=== PATIENT | female | born 1965 | race Caucasian/White ===

== ENCOUNTER 2019-10-09 17:15 | Inpatient (IN) | payer MEDICAID ==
[2019-10-09] MEDS ORDERED: ABILIFY15 MG PO (18:01)
[2019-10-09] MEDS ORDERED: ARISTADA882 MG/3.2 IM (18:04)
[2019-10-09] MEDS ORDERED: DEPAKOTE ER500 MG PO (18:07)
[2019-10-09] MEDS ORDERED: LIPITOR10 MG PO (18:08)
[2019-10-09] MEDS ORDERED: SYNTHROID,LEVO75 MCG PO (18:09)
[2019-10-09] MEDS ORDERED: VITAMIN D34000 UNIT PO (18:10)
[2019-10-09] MEDS ORDERED: GEODON20 M1 IM (18:12)
[2019-10-09 20:48] VITALS: BP 131/69
--- NOTE | 2019-10-09 20:48 | NUR ---
A 54, admitted VOLUNTARY BY GUARDIAN to , under the services of BERNARD Gamble MD with a diagnosis of SCHIZOAFFECTIVE D/O BIPOLAR TYPE 1. Chief complaint is MED NON-COMPLIANCE, YELLING, CALLING POLICE. Patient arrived via stretcher from [facility]. Initial assessment completed. Vital signs taken and recorded. BERNARD GAMBLE MD notified of admission to the unit. Orders received. See assessment for past medical history, medications and allergies. Patient oriented to unit. [facility]. visitation policy reviewed. Clothing/patient valuable form completed. MORRIS DOE
--- NOTE | 2019-10-09 21:17 | NUR ---
Called and notified Dr. Mckeon regarding patient's admission to floor. Dr. Mckeon said to place patient under services of Dr. Bailey for medical management.
--- NOTE | 2019-10-09 22:20 | NUR ---
CALLED AND NOTIFIED OF EKG RESULTS BEING IN AND READY FOR REVIEW. NO NEW ORDERS RECEIVED AT THIS TIME.
--- NOTE | 2019-10-09 22:26 | NUR ---
ON UNIT, REVIEWED PATIENTS RECENT EKG AND PMH. STATED TO DO ANOTHER EKG FOR IN THE MORNING. NO OTHER ORDERS RECEIVED.
--- NOTE | 2019-10-09 22:40 | NUR ---
CALLED AND UPDATED ON NEEDING WOUND CARE ORDERS. STATED HE WILL PUT THEM IN. NO NEW ORDERS RECEIVED.
--- NOTE | 2019-10-09 23:07 | NUR ---
PT SUSPICIOUS AND ACCUSATORY UPON ADMISSION, ALERT AND ORIENTED X3, LABILE. PT STATED SHE IS ONLY HERE BECAUSE THE STAFF AT THE OTHER FACILITY DIDNT DO THEIR JOB CORRECTLY AND MESSED UP HER MEDICATIONS, ALSO THAT THEY DONT DO ANYTHING TO HELP HER THERE AND LET OTHER RESIDENTS BE VERBALLY OR PHYSICALLY AGGRESSIVE TOWARDS HER. PT THEN STATED THE QUESTIONS DURING THE ADMISSION PROCESS ARE "TRICK QUESTIONS" AND THAT SHE WILL SUBPOENA THIS RN TO TESTIFY ON EVERYTHING THAT WAS ASKED BECAUSE HER "MENTAL STABILITY IS FINE". PT ALSO REFUSED HS MEDICATIONS STATING THEY ARE WRONG BECAUSE OF THE COLOR AND WILL NOT TAKE ANYTHING UNTIL SHE TALKS WITH . PT UNRECEPTIVE TO REDIRECTION OR THERAPEUTIC INTERVENTIONS AT THIS TIME, X2 STAFF WITH CARE DUE TO PAST ACCUSATORY BEHAVIORS. PT DENIES SI/HI, HALLUCINATIONS, OR PAIN, NO NOTED RESPONDING TO INTERNAL STIMULI. PT COMPLIANT WITH SKIN ASSESSMENT WITHOUT DIFFICULTY. PT INDEPENDENT IN ADL'S, AMBULATORY WITH A STEADY GAIT, CONTINENT OF BOWEL AND BLADDER. PT CURRENTLY LAYING DOWN WITH EYES CLOSED, RESPIRATIONS EASY AND REGULAR, NO SIGNS OR SYMPTOMS OF DISTRESS NOTED. PLAN IS TO CONTINUE TO MONITOR MOOD AND BEHAVIORS. PROVIDE 1:1 WITH THERAPEUTIC INTERVENTIONS. ENCOURAGE MEDICATION COMPLIANCE AND EDUCATE. MAINTAIN Q 15 MIN CHECKS.
--- NOTE | 2019-10-10 05:36 | NUR ---
PATIENT SLEPT APPROX 7 HOURS UNINTERRUPTED.
[2019-10-10 06:27] LABS: BASO % 0.4 % (0.0-1.0); EOS # 0.1 10*3/uL (0.0-0.4); EOS % 0.7 % (1.0-4.0); HEMATOCRIT 36.6 % (37.0-47.0); HEMOGLOBIN 11.7 g/dl (12.0-16.0); LYMPH # 3.6 10*3/uL (1.3-4.4); LYMPH % 45.1 % (27.0-41.0); MEAN CELL VOLUME 94.6 fl (81.0-99.0); MEAN CORPUSCULAR HGB 30.2 pg (27.0-31.0); MEAN PLATELET VOLUME 12.2 fl (9.6-12.3); MONO # 0.7 10*3/uL (0.1-1.0); MONO % 8.9 % (3.0-9.0); NEUT # 3.6 10*3/uL (2.3-7.9); NEUT % 44.3 % (47.0-73.0); PLATELET COUNT AUTOMATED 211 10*3/uL (130-400); RED BLOOD COUNT 3.87 10*6/uL (4.10-5.10); RED CELL DISTRI WIDTH 13.6 % (0-14.5)
--- NOTE | 2019-10-10 06:28 | NUR ---
RENE TOMLIN [id number] Please refer to the physician's history and physical for past medical history, comorbid conditions, and allergies. Diagnosis: SCHIZOAFFECTIVE BIPOLAR TYPE I Giovanni Score: 22,LOW OR NO RISK WOUND DESCRIPTIONS: Wound Number: 1 Location of the wound: Left upper arm Thickness: Partial Size: 0.6cm x 0.3cm x 0.1cm Tunneling: none Undermining: none Sinus Tract: none Presence of Exudate: Serosanguineous Amount: Light Color: Red Odor: None Periwound Skin Appearance: Normal Wound edges: approximated Pain (associated with wound): none at time of assessment How does patient state this happened? pt stated to nurse caring for her that she picked a scabbed area, when this nurse asked patient she stated it was from acne then prior to this nurse leaving the room she stated it was from injections from a previous facility. Wound Number: 2 Location of the wound: Left upper posterior shoulder Thickness: Partial Size: 0.5cm x 0.4cm x 0.1cm Tunneling: none Undermining: none Sinus Tract: none Presence of Exudate: Serosanguineous Amount: Light Color: Red Odor: None Periwound Skin Appearance: Normal Wound edges: approximated Pain (associated with wound): none at time of assessment How does patient state this happened? pt stated to nurse caring for her that she picked a scabbed area, when this nurse asked patient she stated it was from acne then prior to this nurse leaving the room she stated it was from injections from a previous facility. Patient has multiple scabbed areas noted to upper back and bilateral arms Surface the patient is resting on: Proform SKIN PREVENTION RECOMMENDATION: 1. Pressure redistribution support surface as appropriate 2. Elevate heels 3. Remove boots/TEDS every shift and reapply 4. Head of bed 30 degrees as tolerated 5. Assess nutrition and hydration 6. Manage moisture 7. Avoid the use of containment devices while in bed 8. Use absorptive products on surfaces limit layers of linens on bed 9. Turn and reposition every 1-2 hours in bed and every 1 hour in chair as tolerated 10. Weight shifts every 15 minutes while up in chair 11. Offloading with pillows or device to keep heels elevated off bed 12. Monitor skin at least every shift 13. Inspect under medical devices twice a day WOUND TREATMENT RECOMMENDATIONS: Continue skin tear guidelines per provider.
[2019-10-10 06:37] LABS: ALKALINE PHOSPHATASE 92 U/L (45-117); BUN 7 mg/dl (7-24); CHLORIDE 113 mmol/L (98-107); CHOLESTEROL 99 mg/dL (<200); CREATININE 0.61 mg/dL (0.55-1.02); HDL CHOLESTEROL 29 mg/dl (40-60); LDL CHOLESTEROL 49 mg/dL (9-159); POTASSIUM 3.9 mmol/L (3.5-5.1); SGOT/AST 8 IU/L (3-35); SGPT/ALT 10 U/L (12-78); SODIUM 145 mmol/L (136-145); TOTAL PROTEIN 6.2 gm/dL (6.4-8.2); TRIGLYCERIDES 105 mg/dl (<150); VALPROIC ACID (DEPAKENE) 21.2 ug/ml (50-100); VLDL CHOLESTEROL 21 mg/dL (6-40)
--- NOTE | 2019-10-10 06:56 | NUR ---
Called Dr. Sullivan's answering service regarding consult and they said they would page Dr. Sullivan and give him the message.
--- NOTE | 2019-10-10 06:59 | NUR ---
RESIDENT NUMBER CALLED AT [phone], UPDATED OF CRITICAL AMMONIA LAB OF 65. NNO RECEIVED.
--- NOTE | 2019-10-10 07:00 | NUR ---
PT. REFUSED EKG. STATES SHE DOES NOT WANT TO HAVE EKG DONE. STAFF NOTIFIED.
[2019-10-10 07:27] LABS: VITAMIN D, 25-HYDROXY 18.8 ng/mL (30-100)
[2019-10-10 07:58] VITALS: BP 116/71
--- NOTE | 2019-10-10 08:30 | NUR ---
TREATMENT PLAN MEETING WAS HELD WITH DR. DAY, MATT LIU, RN, AT, PHYSICAL THERAPY PROFESSOR-S AND SHOP ESTIMATOR. PLAN FOR DISCHARGE WEDNESDAY. PT. CAME TO [facility] FROM [facility]. WILL REACH OUT TO FACILITY TODAY TO DISCUSS DISCHARGE PLANNING.
--- NOTE | 2019-10-10 10:25 | NUR ---
PT IS ARGUMENTATIVE. REFUSING SOME AM MEDICATIONS. ASSESSED FOR ORIENTATION, MOOD, AND AFFECT. ASSESSED FOR HALLUCINATIONS AND DELUSIONS. MEDICATIONS ADMINISTERED PER ORDERS, EDUCATION PROVIDED. PT ALERT, ORIENTED X 4. MOOD IS IRRITABLE, LABILE. AFFECT IS CONGRUENT WITH MOOD. PT DENIES HALLUCINATIONS. NO OVERT S/S OF ATTENDING INTERNAL STIMULI. PATIENT IS PERSECUTORY IN SPEECH. PT CONTINUES TO REFUSE LACTULOSE DESPITE EDUCATION. YNES, LENS POLISHER HAND AWARE, SPOKE WITH PT WELL, STATES SHE WILL SPEAK WITH DR. DAY ABOUT POTENTIALLY CHANGING MEDICATION TO REDUCE AMMONIA LEVEL. WILL CONTINUE TO MONITOR PT'S MOOD. WILL EDUCATE ON MEDICATIONS AND ADMINISTER PER ORDERS. WILL ENCOURAGE PARTICIPATION IN GROUP THERAPY FOR SOCIALIZATION AND SUPPORT. Q 15 MIN MONITORING PER POLICY FOR SAFETY.
--- NOTE | 2019-10-10 10:29 | NUR ---
Spoke with pt's guardian Janette Fontenot. Obtained additional patient information. Janette stated that she wants [facility] to contact her prior to the restoration technician meeting with pt. Notified [facility] staff of this and posted notes near phones with the above mentioned instruction.
--- NOTE | 2019-10-10 11:02 | NUR ---
DR. WHEELER IN TO SEE PT AT THIS TIME. REVIEWED RECENT EKG'S AND EKG'S FROM FACILITY, STATES THAT THE LANI AND TERRA ARE FINE TO GIVE, IF PSYCH MEDS ARE CHANGED, GET AN EKG AFTER A COUPLE DAYS AND MONITOR THEM NEEDED.
--- NOTE | 2019-10-10 11:35 | NUR ---
AM GROUP PT ATTENDED MORNING GROUP THERAPY LATE BUT PARTICIPATED IN ALL ACTIVITIES ONCE IN ATTENDANCE. PT WAS TALKATIVE WITH A MALE PEER BUT STAYED ON TASK. PT EXPRESSED NO DELUSIONS OR HALLUCINATIONS WHILE IN GROUP. PT ASSESSMENT NOT COMPLETE AT THIS TIME BUT WILL BE ATTEMPTED THIS EVENING.
--- NOTE | 2019-10-10 14:36 | NUR ---
SPOKE WITH RON AT [facility]. PT. IS GATEKEEPER CARE RESIDENT AND WILL RETURN AT DISCHARGE. SIG CHANGE RESIDENT REVIEW SUBMITTED BY FACILITY.
--- NOTE | 2019-10-10 15:18 | NUR ---
Patient was pleasant this afternoon during interaction with this specification writer. Pt reminisced about her teen years. Pt also spoke of moving to [place] recently. Pt made appropriate eye contact and conversation. Pt did not speak of any paranoid delusions. Pt's mood and reactions were appropriate to the conversation.
--- NOTE | 2019-10-10 15:35 | NUR ---
Nutritional Support Services Note: Appetite is good for meals. She has abrasions noted. Staff to continue to encourage good intake of meals and snack. Will follow if needed. Cande Lara Rdn Ld
[2019-10-10 17:35] LABS: BILIRUBIN NEGATIVE (NEGATIVE); BLOOD NEGATIVE (NEGATIVE); CLARITY CLEAR (CLEAR); COLOR STRAW (YELLOW); GLUCOSE NEGATIVE (NEGATIVE); KETONE NEGATIVE (NEGATIVE); LEUKO ESTERASE 1+ (NEGATIVE); NITRITE NEGATIVE (NEGATIVE); SPECIFIC GRAVITY 1.005 (1.005-1.030); UROBILINOGEN 0.2 E.U./dl (0.2-1.0)
[2019-10-10 17:38] LABS: BACTERIA 1+
[2019-10-10 19:47] VITALS: BP 126/79
--- NOTE | 2019-10-10 20:37 | NUR ---
EVENIING/GAME/CRAFT PT IN ATTENDNACE AND PARTICIPATED IN ALL ACTIVITY. PT PLEASANT AND ON TASK AT THIS TIME WITH NO HALLUCINATIONS, OR AGGRESSION. PT DID STATE TO THIS STAFF "WHY IS HER OXYGEN MACHINE UP CLOSE NEXT TO HER THE HOT AIR IS BLOWING ONTO HER AND ITS TOO LOUD FOR HER EARS?" THIS STAFF ATTEMPTS TO REDIRECT PT AND PT STATES "I'LL ASK A NURSE THEN". THIS STAFF ATTEMPTED PT ACTIVITY ASSESSMENT TWICE BUT PT STATES BOTH TIMES "NOT RIGHT NOW". PT WILL CONTINUE TO ATTEND/PARTICIPATE IN FUTRUE GROUP SESSIONS.
--- NOTE | 2019-10-11 01:34 | NUR ---
P-PREOCCUPIED, IRRITABLE I-REDIRECTION WITH 1:1 THERAPEUTIC INTERVENTIONS AND PRESENT REALITY. EDUCATE AND ENCOURAGE GROUP THERAPY WHILE AWAKE R-PATIENT MEDICATION COMPLIANT EXCEPT FOR TAKING NEOMYCIN. PATIENT ASKING THIS NURSE TO EXPLAIN THE RATIONALE FOR TAKING NEOMYCIN. THIS NURSE EXPLAINED TO PATIENT THE RATIONALE AND REVIEWED RECENT LAB WORK WITH PATIENT. PATIENT REFUSED NEOMYCIN STATING "I HOPE THAT DOCTOR THAT TRIED TO ORDER THIS GETS THE CORONAVIRUS AND I'M NOT TAKING IT. THIS NURSE REVIEWED THE REST OF PATIENT MEDICATIONS AT HS. PATIENT PROVIDED NOURISHMENT AND FLUIDS AT HS. PATIENT WITH NO SUICIDAL OR HOMICIDAL IDEATIONS. PATIENT WITH NO HALLUCINATIONS AT THIS TIME. P-CONTINUE TO ENCOURAGE MEDICATION COMPLIANCE, CONTINUE TO PRESENT REALITY, ENCOURAGE GROUP THERAPY WHILE AWAKE
--- NOTE | 2019-10-11 05:14 | NUR ---
Upon discharge recommend patient to follow up for wound care in outpatient setting continue current wound care orders at discharging facility.
--- NOTE | 2019-10-11 05:30 | NUR ---
PATIENT SLEPT 7 HOURS OF UNINTERRUPTED SLEEP THROUGHOUT SHIFT. Q 15 MINUTE CHECKS MAINTAINED. 24 HR chart check completed.
[2019-10-11 07:28] VITALS: BP 120/63
--- NOTE | 2019-10-11 10:03 | NUR ---
TREATMENT PLAN MEETING WAS HELD WITH DR. DAY, MATT LIU, RN, AT, DIRECT CARE PROVIDER-S AND TUBER HELPER. PLAN FOR DISCHARGE WEDNESDAY WITH RETURN TO [facility].
--- NOTE | 2019-10-11 10:10 | NUR ---
Spoke with pt's guardian Janette Fontenot and provided update. Janette will also be faxing pt's last PAS determination results to this designer writer should [facility] security controls assessor request additional information.
--- NOTE | 2019-10-11 11:12 | NUR ---
PT RECEIVED ARISTADA AND ARISTADA INITIO PER ORDERS. PT TOLERATED WELL.
--- NOTE | 2019-10-11 11:40 | NUR ---
AM GROUP PT ATTENDED MORNING GROUP THERAPY AND PARTICIPATED IN ALL ACTIVITIES. PT DID EXPRESS SOME PARANOID IDEATIONS BY STATING, "WHAT ARE THOSE AIR FRESH THINGS THAT THEY HAVE PUMPING INTO OUR ROOMS AT NIGHT? I CAN SMELL IT ALL NIGHT LONG" THEN LATER PT STATED A FEW TIMES, "THERE IT IS, CAM YOU SMELL IT?" PT ALSO SAID, "I NEED TO SEE THE DOCTOR BECAUSE HE'S GIVING ME ONE MEDICINE AND THEN THOSE NURSES CHANGE IT AND GIVE ME SOMETHING ELSE, THAT'S WHAT THEY DID AT THE OTHER PLACE TOO. I'M NOT TAKING ANYTHING BECAUSE ANYONE CAN COME ALONG AND CHANGE WHAT MEDICINES I TAKE!"
--- NOTE | 2019-10-11 13:46 | NUR ---
CLINICAL UPDATES FAXED TO [facility] ATTN: RON.
--- NOTE | 2019-10-11 14:15 | NUR ---
SPOKE WITH DR RUANO AND ADVISED OF DR TOPETE REQUEST THAT ANY MEDICATION CHANGES BE DISCUSSED WITH HIM PRIOR TO THE CHANGE BEING MADE D/T PT PARANOIA REGARDING MEDS. DR MOLINA RETURNED CALL AND ADVISED OF ABOVE DR STATED "OK" NO FURTHER ORDERS AT THIS TIME.
--- NOTE | 2019-10-11 15:43 | NUR ---
PM GROUP/CRAFTS PT ATTENDED AFTERNOON GROUP THERAPY AND PARTICIPATED IN ALL ACTIVITIES. PT CONTINUES TO BE PARANOID ABOUT MEDICATIONS AND WHEN ADVISED TO SPEAK TO HER NURSE, BECAME AGITATED. PT STATED, "I'M NOT TAKING ANYTHING UNTIL I TALK TO THE DOCTOR. NURSES ARE GOING IN AND CHANGING MY MEDICATION"
--- NOTE | 2019-10-11 16:31 | NUR ---
LORENZO CALLED IN AND ADVISED THAT SHE IS COMING TO SEE PT, ADVISED THAT SHE ALREADY SPOKE TO GUARDIAN. THIS NURSE CALLED AND VERIFIED WITH GUARDIAN. PER GUARDIAN SHE FAXED AROUND 20 SOMETHING PAGES OF INFORMATION TO JAYLA THIS MORNING TO BE GIVEN TO THE LORENZO PERSON.
[2019-10-11 19:35] VITALS: BP 126/63
--- NOTE | 2019-10-11 23:52 | NUR ---
P- PARANOID, DELUSIONAL, ACCUSATORY. PT STATED "YOU KNOW THEY PUMP PERFUME THROUGH THE VENTS HERE IN THE MIDDLE OF THE NIGHT TO MESS WITH PEOPLE LIKE ME WHO HAVE COPD". I-PRESENTED REALITY AND REDIRECTED. PROVIDED 1:1 WITH THERAPEUTIC INTERVENTIONS. PROVIDED REASSURANCE OF SAFETY. ENCOURAGED MEDICATION COMPLIANCE AND EDUCATED. R- PT UNRECEPTIVE TO REDIRECTION OR INTERVENTIONS, BECOMES AGITATED/ARGUMENTATIVE. PT ALSO CONTINUES TO BE SUSPICIOUS OF MEDICATIONS DESPITE EDUCATION, PT STATED "ILL TAKE THEM BUT I DONT THINK THESE DOCTORS KNOW WHAT THEY ARE DOING, SO IF I THROUGHOUT THE NIGHT YOU KNOW WHY". PT MEDICATION COMPLIANT. X2 STAFF DURING CARE DUE TO ACCUSATORY BEHAVIOR. NO PHYSICAL COMPLAINTS VOICED. P-CONTINUE TO MONITOR MOODS AND BEHAVIORS. PRESENT REALITY AND REDIRECT NEEDED. MAINTAIN Q 15 MIN CHECKS AND PRN FOR SAFETY.
--- NOTE | 2019-10-12 05:56 | NUR ---
24 HOUR CHART CHECK COMPLETED.
--- NOTE | 2019-10-12 06:07 | NUR ---
PATIENT SLEPT APPROX 2 HOURS INTERRUPTED, NO SIGNS OR SYMPTOMS OF DISTRESS NOTED.
[2019-10-12 08:00] VITALS: BP 116/76
--- NOTE | 2019-10-12 09:00 | NUR ---
TREATMENT PLAN MEETING WAS HELD WITH DR. DAY, RN, AT, ORCHESTRA LEADER-S AND IT COMPLIANCE MANAGER. PLAN FOR DISCHARGE WEDNESDAY WITH RETURN TO [facility].
--- NOTE | 2019-10-12 11:37 | NUR ---
AM GROUP PT ATTENDED MORNING GROUP THERAPY AND PARTICIPATED IN ALL ACTIVITIES. PT IS STILL FOCUSED ON MEDICATION AND HAVING TO TAKE A SHOT. PT WAS REFERED TO HER NURSE FOR QUESTIONS ABOUT MEDS. OTHERWISE, PT WAS TALKATIVE BUT ON TASK
--- NOTE | 2019-10-12 14:40 | NUR ---
P: PT PARANOID REGARDING MEDICATIONS AND THEIR USES. PT IRRITABLE AT TIMES WITH STAFF AND PEERS. PT GRANDIOSE AT TIMES TELLING STAFF "MY ROOMMATE IS TAKING MY THINGS AND THORWING THEM ON THE FLOOR, COME LOOK." PT MOOD IS LABILE. I: PROVIDE EMOTIONAL SUPPORT AND 1:1 FOR PT TO VOICE FEELINGS, ENCOURAGE MED COMPLIANCE AND PROVIDE MED EDUCATION, ENCOURAGE GROUP PARTICIPATION AND SOCIALIZATION, PRESENT REALITY AND RE-ORIENT WITH EACH INTERACTION AND NEEDED R: PT ALERT TO PERSON, PLACE AND TIME. PT CONTINUES TO BE PARANOID RE:MEDICATIONS. PT MED COMPLIANT WITHOUT DIFFICULTY, MED EDUCATION PROVIDED. PT CALM, MOOD REMAINS LABILE. NO HALLUCINATIONS NOTED. PT DENIES ANY SUICIDAL THOUGHTS. PT AMBULATORY THROUGHOUT UNIT, GAIT STEADY. PT CONTINENT OF BOWEL AND BLADDER. PT CONTINENT OF BOWEL AND BLADDER. P: MONITOR PT BEHAVIORS ON Q15 MIN SAFETY CHECKS, ENCOURAGE MED COMPLIANCE AND PROVIDE MED EDUCATION, ENCOURAGE GROUP PARTICIPATION AND SOCIALIZATION, PRESENT REALITY AND RE-ORIENT AND NEEDED, PROVIDE EMOTIONAL SUPPORT AND 1:1 FOR PT TO VOICE FEELINGS.
--- NOTE | 2019-10-12 15:40 | NUR ---
PM GROUP PT ATTENDED AND PARTICIPATED IN ALL GROUP ACTIVITIES. PT EXPRESSED MANY PARANOID IDEATIONS DURING GROUP, SUCH , "HER SISTER DID THIS TO HER ILLEGALLY BECAUSE SHE WAS JEALOUS OF HER...HER GUARDIAN DOES'T HAVE THE RIGHT COURT PAPERS TO MAKE HER DO ANYTHING...THE STAFF AT [facility] ALL HATE HER...ETC."
[2019-10-12 20:00] VITALS: BP 121/82
--- NOTE | 2019-10-12 20:42 | NUR ---
24 HR chart check completed.
--- NOTE | 2019-10-12 23:17 | NUR ---
P-PARANOID, GRANDIOSE DELUSIONS, IRRITABLE, IMPULSIVE I-1:1 FOR EMOTIONAL SUPPORT, PRESENT REALITY, MONITOR SLEEP R-PT IS IRRITABLE & UNRECEPTIVE TO PRESENTATION OF REALITY. CONTINUES TO VOICE GRANDIOSE & PARANOID DELUSIONS. PT CAME TO NURSES STATION IMMEDIATELY AFTER CHANGE OF SHIFT. ASK TO USE THE PHONE. INFORMED HER OF GUARDIANS GUIDELINES. PT VERY IRRITABLE & SHE WALKED AWAY FROM NURSES STATION & INTO DINING ROOM, SHE YELLED, "THERE IS A COURT HEARING TOMORROW. YOU ARE ALL GONNA BE RESPONSIBLE & IN TROUBLE. MY SON & MY DAUGHTER OVERRULE MY GUARDIAN. I DONT CARE WHAT THE GUARDIAN SAYS. I NEED TO TALK TO MY SON." ATE SNACK. HAS BEEN OFFERED PRN ROZEREM SEVERAL TIMES & HAS REFUSED TO TAKE IT FOR ASSISTANCE WITH SLEEP. P-CONTINUE TO MONITOR & PROVIDE PHYSICAL ASSISTANCE & EMOTIONAL SUPPORT NEEDED.
--- NOTE | 2019-10-13 06:53 | NUR ---
PT SLEPT PAST 229.
[2019-10-13 08:00] VITALS: BP 131/75
--- NOTE | 2019-10-13 11:20 | NUR ---
Spoke with Eilsa of [facility] who stated that they received the Resident Review determination for pt and that she was not approved for LTC. Elisa stated that the [employer] [facility] social work professor was informing pt's guardian of this. This scientific writer requested a copy of the determination be faxed to [facility].
--- NOTE | 2019-10-13 11:21 | NUR ---
CLINICAL UPDATES FAXED TO [facility].
--- NOTE | 2019-10-13 11:38 | NUR ---
AM GROUP/WATERCOLORS PT ATTENDED MORNING GROUP THERAPY AND PARTICIPATED IN ALL ACITIVITIES. PT WAS LESS TALKATIVE THIS MORNING AND WAS MORE TASK FOCUSED. PT EXPRESSED NO PARANOID DELUSIONS WHILE IN GROUP.
--- NOTE | 2019-10-13 18:19 | NUR ---
PT CONTINUES WITH IRRITABILITY REGARDING INABILITY TO MAKE PHONE CALLS PER GUARDIAN. STATES "I WISH THAT F*CKING B*TCMarycruz WOULD MIND HER OWN BUSINESS AND LET ME CALL MY FAMILY. FAMILY TRUMPS MY GUARDIAN AND I SHOULD BE ALLOWED TO DO WHAT I WANT". PT ENCOURAGED TO CALM DOWN, ENTER LOW STIMULATION AREA SUCH HER ROOM, PROVIDED WITH REDIRECTION AND EMOTIONAL SUPPORT. REDIRECTION AND LOW STIMULATION INTERMITTENTLY EFFECTIVE. PT HAD SEVERAL EPISODES OF YELLING ABOUT LACK OF PHONE CALLS. PT ALWAYS REDIRECTED AGAIN BY STAFF. WILL CONTINUE TO REDIRECT AND PROVIDE EMOTIONAL SUPPORT APPROPRIATE. Q15 MIN MONITORING PER POLICY.
--- NOTE | 2019-10-13 18:55 | NUR ---
Shift chart check completed.
[2019-10-13 19:50] VITALS: BP 133/78
--- NOTE | 2019-10-13 19:59 | NUR ---
24 HR chart check completed.
--- NOTE | 2019-10-13 20:34 | NUR ---
PT HAS BEEN CHECKED ON Q 15 MIN ROUNDS. HAS BEEN SLEEPING SINCE THE ONSET OF THE SHIFT. NO SIGNS/SYMPTOMS OF DISTRESS NOTED.
--- NOTE | 2019-10-14 05:25 | NUR ---
PT HAS SLEPT SINCE THE ONSET OF THE SHIFT. UP X 1 TO GO TO THE BATHROOM.
[2019-10-14 08:00] VITALS: BP 115/76
--- NOTE | 2019-10-14 08:48 | NUR ---
DR MOLINA ON UNIT TO ASSESS PT, UPDATE PROVIDED.
--- NOTE | 2019-10-14 11:30 | NUR ---
PT COMPLAINED OF A HEADACHE, MEDICATED WITH TYLENOL 650 MG PO PRN PER ORDERS.
--- NOTE | 2019-10-14 11:47 | NUR ---
AM GROUP/COLOR THERAPY/CRAFT PT IN ATTENDNACE AND PARTICIPATED IN ALL ACTIVITY'S. PT PLEASANT WITH NO HALLUCINATIONS OR PARANOID DELUSIONS EXPRESSED AT THIS TIME. PT WILL CONTINUE TO ATTEND AND PARTICIPATE IN FUTURE GROUP SESSIONS.
--- NOTE | 2019-10-14 12:00 | NUR ---
NO FURTHER C/O HEADCHE NOTED AT THIS TIME, PT IN DINING ROOM EATING LUNCH.
--- NOTE | 2019-10-14 15:38 | NUR ---
PM GROUP/LEISURE SKILLS PT IN ATTENDNACE AND PARTICIPATED. PT WORKING ON PAINTING A BIRDHOUSE. PT PLEASANT WITH NO PARANOID DELUSIONS OR HALLUCINATIONS EXPRESSED AT THIS TIME. PT WILL CONTINUE TO ATTEND/PARTICIPATE IN FUTRUE GROUP SESSIONS.
--- NOTE | 2019-10-14 16:18 | NUR ---
P: PT ARGUEMENTATIVE WITH STAFF RE: HER INABILITY TO MAKE PHONE CALLS PER HER GUARDIAN'S ORDERS. PT STATED "SHE HAS NO SAY OVER MY FAMILY, SHE CAN'T CONTROL WHAT I DO, SHES A BCH SHE CAN'T TELL ME AND MY FAMILY WHAT TO DO." PT REFUSING SHOWER THIS SHIFT, WILL TELL STAFF "OK IM READY TO GET MY SHOWER" AND THEN WHEN STAFF STATES "OK I'LL SET IT UP FOR YOU" PT STATES "OH NO I DON'T WANT ONE RIGHT NOW" I: PROVIDE EMOTIONAL SUPPORT AND 1:1 FOR PT TO VOICE FEELINGS, PROVIDE EDUCATION RE: GUARDIAN PROCESS AND THE GUARDIANS ABILITY TO MAKE DECISIONS FOR THE PT, PROVIDE REDIRECTION. ENCOURAGE GOOD HYGIENE PRACTICES. R: PT ALERT TO PERSON, PLACE AND TIME. PT MED COMPLIANT WITHOUT DIFFICULTY,MED EDUCATION PROVIDED. PT CONTINUES TO BE ARGUEMENTATIVE WITH STAFF AND CURSING. NO HALLUCINATIONS NOTED. PT DENIES ANY SUICIDAL THOUGHTS. PT AMBULATORY THROUGHOUT UNIT, GAIT STEADY. PT CONTINENT OF BOWEL AND BLADDER. PT CONTINUES TO REFUSE TO SHOWER AT THIS TIME. P: MONITOR PT BEHAVIORS ON Q15 MIN SAFETY CHECKS, ENCOURAGE MED COMPLIANCE AND PROVIDE MED EDUCATION, PROVIDE EMOTIONAL SUPPORT AND 1:l FOR PT TO VOICE FEELINGS, CONTINUE TO PROVIDE EDUCATION ON GUARDIANSHIP PROCESS. PROVIDE REDIRECTION NEEDED, ENCOURAGE GOOD HYGIENE PRACTICES.
--- NOTE | 2019-10-14 16:49 | NUR ---
PT REMOVED BANDAIDS FROM LEFT UPPER ARM AND LEFT SHOULDER AREA.
[2019-10-14 20:00] VITALS: BP 112/72
--- NOTE | 2019-10-14 21:31 | NUR ---
P-PREOCCUPIED, IRRITABLE I-REDIRECTION WITH 1:1 THERAPEUTIC INTERVENTIONS AND PRESENT REALITY. EDUCATE AND ENCOURAGE GROUP THERAPY WHILE AWAKE R-PATIENT WITH MEDICATIONS GIVEN AT HS. PATIENT WITH NO HALLUCINATIONS OR DELUSIONS AT THE TIME. PATIENT WITH NO SUICIDAL OR HOMICIDAL IDEATIONS. PATIENT REFUSED NOURISHMENT AT HS BUT RECEIVED FLUIDS. PATIENT IRRITABLE AT TIMES AND PREOCCUPIED WHEN WANTING TO DISCUSS MEDICATIONS AT HS. PATIENT REDIRECTABLE WITHOUT DIFFICULY. P-CONTINUE TO ENCOURAGE MEDICATION COMPLIANCE, CONTINUE TO PRESENT REALITY, ENCOURAGE GROUP THERAPY WHILE AWAKE
--- NOTE | 2019-10-14 23:23 | NUR ---
PATIENT REQUESTED UMER AT . THIS NURSE WENT OVER THE USAGE FOR MEDICATION. PATIENT INSPECTED PILL PRIOR TO ADMINSTATION OF MEDICATION. MEDICATION WITH EFFECTIVE RESULTS AT THIS TIME
--- NOTE | 2019-10-15 05:27 | NUR ---
PATIENT SLEPT 7 HOURS OF UNINTERRUPTED SLEEP THROUGHOUT SHIFT. Q 15 MINUTE CHECKS MAINTAINED. 24 HR chart check completed.
--- NOTE | 2019-10-15 07:32 | NUR ---
Patient resting quietly with no c/o discomfort. Respirations easy and regular. Vital signs stable. No overt distress. HARLEEN TRUONG Pt refused breakfast at this time, stated not hungry at this time.
[2019-10-15 07:34] VITALS: BP 131/75
--- NOTE | 2019-10-15 08:00 | NUR ---
Eric CHAIN BUILDER LOOM CONTROL on unit to see pt at this time, update given.
--- NOTE | 2019-10-15 09:00 | NUR ---
on unit to see pt at this time.
--- NOTE | 2019-10-15 10:23 | NUR ---
NO ADVERSE BEHAVIORS OF THIS TIME IN THE SHIFT. PT IS ALERT AND ORIENTED X4. MEMORY APPEARS TO BE INTACT. RESPS EASY AND EVEN ON ROOM AIR. MOOD STABLE, AFFECT APPROPRIATE. PT DENIES FEELING SAD, DEPRESSED OR ANXIOUS. DENIES FEELING HOPELESS, STATES "I FEEL REALLY REALLY GOOD". WHEN ASKED IF PT FELT BETTER NOW THAN SHE DID UPON ADMISSION TO THE UNIT PT STATES "I DON'T REALLY KNOW IF I FEEL BETTER, BUT I GOT TO TALK TO THE DOCTOR ABOUT MY PSYCH MEDS AND THAT WAS GOOD, THAT WAS THE MOST IMPORTANT THING". PT DENIES SI/HI, INTENT OR PLAN. PT DENIES HALLUCINATIONS, NO RESPONSE TO INTERNAL STIMULI NOTED. NO PARANOIA OR DELUSIONS NOTED. MED COMPLIANT THIS AM WITHOUT DIFFICULTY. PT INTERACTING APPROPRIATELY WITH STAFF AND PEERS THIS AM. NO DISTRESS NOTED. PLAN TO CONTINUE CURRENT TX, CONTINUE TO MONITOR MOOD AND BEHAVIORS, PROVIDE APPROPRIATE REORIENTATION, REDIRECTION AND 1:1 NEEDED. CONTINUE TO ENOURAGE MEDICATION COMPLIANCE WELL GROUP ATTENDANCE AND PARTICIPATION.
--- NOTE | 2019-10-15 11:44 | NUR ---
AM GROUP/EXERCISE/DISCUSSION/CRAFT PT IN ATTENDNACE AND PARTICIPATED IN ALL ACTIVITY. PT PLEASANT AND ON TASK WITH NO HALLUCINATIONS OR PARANOID DELSUIONS EXPRESSED AT THIS TIME. PT WILL CONTINUE TO ATTEND AN DPARTICIPATE IN FUTURE GROUP SESSIONS.
--- NOTE | 2019-10-15 13:39 | NUR ---
PT REFUSED SKIN TREATMENTS TO AREAS TO UPPER LEFT ARM/LEFT SHOULDER. AREAS APPEAR SCABBED OVER AT THIS TIME. PT STATES "NO, THEY TOLD ME IT WAS OKAY". PT REMAINS BEHAVIORALLY IN CONTROL OF THIS TIME IN THE SHIFT, DRINKING GINGERALE, WATCHING TV AND SOCIALIZING WITH FEMALE PEER APPROPRIATELY AT THIS TIME.
--- NOTE | 2019-10-15 18:28 | NUR ---
PT REFUSED SHOWER THIS SHIFT DESPITE OFFERING MULTIPLE TIMES AND ENCOURAGEMENT.
--- NOTE | 2019-10-15 18:29 | NUR ---
SHIFT CHART CHECK COMPLETED.
[2019-10-15 20:00] VITALS: BP 140/86
--- NOTE | 2019-10-15 21:43 | NUR ---
PATIENT ALERT AND ORIENTED. PATIENT WITH NO RESPIRATORY DISTRESS. PATIENT MOOD IS STABLE. PATIENT WITH NO HALLUCINATIONS OR DELUSIONS AT THE TIME. PATIENT WITH NO SUICIDAL OR HOMICIDAL IDEATIONS. PATIENT REFUSED NOURISHMENT AT BUT RECEIVED FLUIDS. PATIENT INTERACTING WITH NURSING STAFF AND PATIENTS APPROPRIATELY. PATIENT SHOWERED AND PATIENT CHIN SHAVED WITH MENTAL HEALTH WORKER PRESENT. PATIENT STATED "I'M PRETTY TIRED TONIGHT, BUT IF I CAN NOT GET ANY SLEEP BY 11 TONIGHT THEN I WILL COME AND ASK YOU FOR THAT MEDICATION YOU GAVE ME LAST NIGHT FOR SLEEP. PATIENT AMBBULATING ON UNIT WITH STEADY GAIT AND WITH NO ASSISTIVE DEVICE. SEE [facility] FLOW SHEET FOR SPECIFIC MONITORING.
--- NOTE | 2019-10-15 23:30 | NUR ---
PATIENT REQUESTED ROZERM AT . PATIENT WITH COMPLAINT OF NOT BEING ABLE TO SLEEP AT THIS TIME. PATIENT INSPECTED ROZERM TO MAKE SURE WHAT THE PILL SHE WAS TAKING. PATIENT PREOCCUPIED WITH MEDICATION AND WANTING TO REVIEW THE USE FOR ROZERM. PATIENT ALSO STATED "THIS IS THE SECOND DAY I HAVE TAKING THIS. I WILL NOT TAKE IT TOMORROW. I DO NOT WANT TO DEPEND ON ANY MEDICATION TO HELP ME SLEEP". MEDICATION WITH EFFECTIVE RESULTS.
--- NOTE | 2019-10-16 05:25 | NUR ---
PATIENT SLEPT 4 HOURS INTERRUPTED SLEEP THROUGHOUT SHIFT. Q 15 MINUTE CHECKS MAINTAINED. 24 HR chart check completed.
[2019-10-16 07:44] VITALS: BP 122/77
--- NOTE | 2019-10-16 09:21 | NUR ---
Spoke with pt's guardian Janette Fontenot about the RR determination. Janette was not aware that pt was denied continued stay in . Discussed this further. Janette stated that she will appeal the determination. Informed her that planned discharge for pt is most likely mid-week with discharge plan of pt returning to [facility] while waiting for appeal process.
--- NOTE | 2019-10-16 10:16 | NUR ---
TREATMENT PLAN MEETING WAS HELD WITH DR. DAY, MATT LIU, RN, AT, PHYSIOLOGIST-S AND ACCOUNTANT CONTROLLER. PLAN FOR DISCHARGE THIS WEEK. PT. WILL RETURN TO [facility] AT DISCHARGE.
--- NOTE | 2019-10-16 10:24 | NUR ---
Patient pleasant during interaction with this global technical writer this AM. Pt did speak of her son and his occupation but did not ask to call him on the phone. Pt did not voice any hallucinations or delusions.
--- NOTE | 2019-10-16 11:44 | NUR ---
AM GROUP PT ATTENDED MORNING GROUP THERAPY AND PARTICIPATED LIMITEDLY. PT WAS FOCUSED ON BEING DISCHARGED TODAY STATING THAT DR. DAY AND THE SW TOLD HER THAT WE WERE JUST WAITING ON A RIDE. PT WOULD NOT BE REDIRECTED. PT EXPRESSED NO PARANOID DELUSIONS OR HALLUCINATIONS WHILE IN GROUP.
--- NOTE | 2019-10-16 14:25 | NUR ---
NO ADVERSE MOODS OR BEHAVIORS NOTED. PT ALERT TO PERSON, PLACE AND TIME. PT MED COMLPIANT WITHOUT DIFFICULTY, MED EDUCATION PROVIDED. PT CALM, MOOD IS STABLE. PT GOAL DIRECTED TOWARDS DISCHARGE. NO HALLUCINATIONS OR DELUSIONS NOTED. PT DENIES ANY SUICIDAL THOUGHTS OR BEHAVIORS. PT AMBULATORY THROUGHOUT UNIT, GAIT STEADY. PT CONTINENT OF BOWEL AND BLADDER. PLAN IS TO MONITOR PT BEHAVIORS ON Q15 MIN SAFETY CHECKS, ENCOURAGE MED COMPLIANCE AND PROVIDE MED EDUCATION, PROVIDE EMOTIONAL SUPPORT AND 1:1 FOR PT TO VOICE FEELINGS, ENCOURAGE GROUP PARTICIPATION AND SOCIALIZATION.
--- NOTE | 2019-10-16 15:35 | NUR ---
PM GROUP PT ATTENDED AFTERNOON GROUP THERAPY AND PARTICIPATED IN ALL ACTIVITIES. PT WAS TALKATIVE AND SEEMED TO "ZONE OUT" AND STARE INTO SPACE AND WOULD MAKE COMMENTS THAT WERE OFF THE WALL. PT EXPRESSED NO PARANOID DELUSIONS DURING GROUP.
[2019-10-16 19:41] VITALS: BP 151/87
--- NOTE | 2019-10-16 20:25 | NUR ---
EVENING/LEISURE SKILLS PT IN ATTENDNACE AND PARTICIPATING BY SOCIALIZING AND WATCHING MUSIC VIDEOS. PT EXPRESSES NO PARANOID DELUSIONS OR HALLUCINATIONS AT THIS TIME. PT WILL CONTINUE TO ATTEND AND PARTICIPATE IN FUTURE GROUP SESSIONS.
--- NOTE | 2019-10-16 21:03 | NUR ---
P-PREOCCUPIED I-REDIRECTION WITH 1:1 THERAPEUTIC INTERVENTIONS AND PRESENT REALITY. EDUCATE AND ENCOURAGE GROUP THERAPY WHILE AWAKE R-PATIENT PREOCCUPIED WITH PRN MEDICATION. PATIENT DISCUSSED WITH THIS NURSE THAT SHE "DID NOT WANT TO TAKE ROZEREM AT HS". PATIENT EXPLAINED THAT SHE WANTED TO TRY GOING WITH OUT IT AT HS AND DOES NOT WANT TO TAKE PRN MEDICATION EVERY NIGHT AND START TO DEPEND ON IT FOR SLEEP. PATIENT WITH NO HALLUCINATIONS OR DELUSIONS AT THE TIME. PATIENT WITH NO SUICIDAL OR HOMICIDAL IDEATIONS. PATIENT PROVIDED FLUIDS AT HS. PATIENT WITH STABLE MOOD AND INTERACTING WITH PEERS IN DINING AREA. P-CONTINUE TO ENCOURAGE MEDICATION COMPLIANCE, CONTINUE TO PRESENT REALITY, ENCOURAGE GROUP THERAPY WHILE AWAKE
--- NOTE | 2019-10-17 05:49 | NUR ---
PATIENT SLEPT 7 HOURS OF UNINTERRUPTED SLEEP THROUGHOUT SHIFT. Q 15 MINUTE CHECKS MAINTAINED. 24 HR chart check completed.
[2019-10-17 07:15] VITALS: BP 137/91
--- NOTE | 2019-10-17 07:47 | NUR ---
SPOKE WITH EUGENIA PRINGLE NP RE: PT DISCHARGE FOR TODAY AND MEDICAL MEDS NEEDING COMPLETED. NO FURTHER ORDERS AT THIS TIME.
[2019-10-17] MEDS ORDERED: ANIMAL SHAPES1 EAC2 PO (08:31)
[2019-10-17] MEDS ORDERED: ARISTADA662 MG/2.4 IM (08:31)
[2019-10-17] MEDS ORDERED: ROZEREM8 MG PO (08:31)
--- NOTE | 2019-10-17 10:19 | NUR ---
NO ADVERSE MOODS OR BEHAVIORS NOTED AT THIS TIME. PT ALERT TO PERSON, PLACE, AND TIME. PT MED COMPLIANT WITHOUT DIFFICULTY, MED EDUCATION PROVIDED. PT CALM, MOOD IS STABLE. PT ABLE TO CONVERSATE APPROPRIATELY WITH STAFF AND PEERS. NO HALLUCINATIONS OR DELUSIONS NOTED AT THIS TIME. PT DENIES ANY SUICIDAL THOUGHTS OR BEHAVIORS. PT HAS SCABS NOTED TO LEFT UPPER ARM AND LEFT UPPER SHOULDER. PT AMBULATORY THROUGHOUT UNIT, GAIT STEADY. PT CONTINENT OF BOWEL AND BLADDER. PLAN IS TO MONITOR PT BEHAVIORS ON Q15 MIN SAFETY CHECKS AND PREPARE PT FOR DISCHARGE TO [facility].
--- NOTE | 2019-10-17 11:31 | NUR ---
WOUND PHOTOS TAKEN AT THIS TIME.
--- NOTE | 2019-10-17 11:35 | NUR ---
AM GROUP PT ATTENDED MORNING GROUP THERAPY AND PARTICIPATED IN ALL ACTIVITIES. PT WAS NOTED TO LAUGH INAPPROPRIATELY BUT EXPRESSED NO PARANOID DELUSIONS WHILE IN GROUP. PT IS SET TO BE DISCHARGED FROM THE UNIT TODAY.
--- NOTE | 2019-10-17 12:50 | NUR ---
PT DISCHARGED TO [facility] ER [facility]IA [facility]. PT SYEDA AND DC PAPERWORK SENT WITH PT.
--- NOTE | 2019-10-17 12:52 | NUR ---
NURSE TO NURSE REPORT GIVEN TO MEL AT [facility], ADVISED THAT PT IS ENROUTE.
--- NOTE | 2019-10-17 15:27 | NUR ---
Patient discharged today to [facility]. Follow-up will be with Dr Santos, visiting psychiatrist. While at [facility], pt's behaviors improved and her paranoid delusions lessened. Pt became med compliant. Pt did participate in programming. This telegraphic typewriter installer spoke to pt's guardian at length about the planned appeal of pt's Resident Review determination.
== END 2019-10-17 12:50 | DRG 750 ==
LOC: 3N 17:15
PROVIDERS: ADMIT Psychiatry & Neurology Psychiatry
DX: F25.0 Schizoaffective disorder, bipolar type (principal); E55.9 Vitamin D deficiency, unspecified; F17.210 Nicotine dependence, cigarettes, uncomplicated; Z71.6 Tobacco abuse counseling; E87.8 Other disorders of electrolyte and fluid balance, not elsewhere classified; E44.0 Moderate protein-calorie malnutrition; E72.20 Disorder of urea cycle metabolism, unspecified; E66.9 Obesity, unspecified; R73.03 Prediabetes; E78.5 Hyperlipidemia, unspecified; E03.9 Hypothyroidism, unspecified; Z88.8 Allergy status to other drugs, medicaments and biological substances; Z83.6 Family history of other diseases of the respiratory system

== ENCOUNTER 2019-11-06 23:16 | Inpatient (IN) | payer MEDICAID ==
[~2019-11-06] VITALS: Ht 167.6 cm; Wt 74.8 kg
[~2019-11-06 23:16] MED LIST: ABILIFY15 MG PO; ANIMAL SHAPES1 EAC2 PO; ARISTADA662 MG/2.4 IM; ARISTADA882 MG/3.2 IM; DEPAKOTE ER500 MG PO; GEODON20 M1 IM; LIPITOR10 MG PO; ROZEREM8 MG PO; SYNTHROID,LEVO75 MCG PO; VITAMIN D34000 UNIT PO
[2019-11-07] MEDS ORDERED: BISACODYL5 MG PO (05:35)
[2019-11-07] MEDS ORDERED: LACTULOSE20 GM/30 M PO (05:41)
[2019-11-07] MEDS ORDERED: GEODON20 M1 IM (05:45)
[2019-11-07] MEDS ORDERED: ARISTADA882 MG/3.2 IM ×2 (09:29→09:32)
--- NOTE | 2019-11-07 10:35 | NUR ---
RENE TOMLIN a 54 year old F admitted via stretcher from the [facility] as a voluntary BY GUARDIAN admission. Arrived on unit at 1035. ALLERGIES: RISPIREDONE. Vital signs are: [id number] 113/75. The client's legal guardian verbally agreed to over the phone to the following forms with stated understanding: Authorization For The Release of Medical Information, Clothing List, Consent to Voluntary Admission and Hospitalization, Consent and Release Forms/Receipt of Rights, Acknowledgement of Advance Directive Information, Behavioral Health Consent Form, and Informed Consent of Medications. Admitted under the services of Dr. SHAY MONTENEGRO,[facility]. A search was conducted and hazardous articles were removed. Client was oriented to the unit. MICHA MARTÍNEZ
--- NOTE | 2019-11-07 10:53 | NUR ---
Please refer to psychosocial assessment dated 10/10/19. This AS400 DEVELOPER-S spoke with pt's legal guardian Janette Fontenot who confirmed that she is wanting pt to return to [facility]. Janette also requests that pt not receive/place phone calls. Further, Janette does not want an [facility] rose grader to speak to pt before the rose grader speaks to Janette.
--- NOTE | 2019-11-07 11:44 | NUR ---
DR. LYNCH NOTIFIED OF NEW ADMISSION. MEDICATIONS AND DIAGNOSIS LIST UPDATED FOR REVIEW. NOTIFIED OF BILATERAL SHOULDER WOUNDS FOR TREATMENTS. PATIENT WILL BE UNDER THE CARE OF DR. BEARDEN. PATIENT RESTING IN BED WITH NOT DISTRESS. BED ALARM TURNED ON.
[2019-11-07 11:50] VITALS: BP 113/75
--- NOTE | 2019-11-07 12:15 | NUR ---
EUGENIA PRINGLE CNP ON UNIT TO ASSESS PATIENT.
[2019-11-07 12:42] VITALS: BP 113/75
[2019-11-07 14:44] LABS: BILIRUBIN NEGATIVE (NEGATIVE); BLOOD NEGATIVE (NEGATIVE); CLARITY CLEAR (CLEAR); COLOR YELLOW (YELLOW); GLUCOSE NEGATIVE (NEGATIVE); KETONE NEGATIVE (NEGATIVE); LEUKO ESTERASE NEGATIVE (NEGATIVE); NITRITE NEGATIVE (NEGATIVE); PH 6.5 (5.0-9.0); SPECIFIC GRAVITY 1.005 (1.005-1.030); UROBILINOGEN 0.2 E.U./dl (0.2-1.0)
--- NOTE | 2019-11-07 15:57 | NUR ---
Shift chart check completed.
--- NOTE | 2019-11-07 17:09 | NUR ---
P: VOICED PENTECOSTAL DEULSIONAL THOUGHTS VOICED. STATING "I WAS TRYING TO BREAK THE SCREEN WINDOW TO LEAVE AND GO HOME. CK WAS TELLING ME TO GET AWAY FROM THE VIRUS, I GOT AWAY ONCE AND CALLED MY DAUHER AND THE POLICE BROUGHT ME BACK TO [facility]" I: ONE ON ONE, REDIRECTION AND LIMIT SETTING NEEDED R: EFFECTIVE. PATIENT IS ALERT AND ORIENTED TO PERSON, PLACE, TIME AND SITUATION; ABLE TO VOICE NEEDS. MOOD IS IRRITABLE WITH PRESSURED SPEECH AT TIMES, DEMANDING AND LABILE. DENIES ANY HALLUCINATINS, DELUSIONS, HI/SI OR PAIN. Q 15 MINUTE SAFETY CHECKS MAINTANED. 1 PERSON ASSIST CUEING WITH ACTIVITIES OF DAILY LIVING, CONTINENT OF BOWEL AND BLADDER. SET UP FOR MEALS, INTAKES ARE GOOD. SHOWERED THIS AFTERNOON. AMBULATORY WITH STEADY GAIT. P: CONTINUE TO MONITOR MOOD, AGGRESSION, HALLUCINATIONS AND DELUSIONS. PROVIDE ONE ON ONE AND REDIRECTION NEEDED.
--- NOTE | 2019-11-07 17:38 | NUR ---
PATIENT REFUSING SCHEDULED LIPITOR AT THIS TIME. 1:1 INTERACTION AND EDUCATION PROVIDED ON MEDICATION NEED FOR INDIVIDUAL CASE. PATIENT STATED "I AM REFUSING THAT LIPITOR. GO AHEAD LOOK IN MY CHART, THERE IS NOTHING WRONG WITH MY CHOLESTEROL. I HAVE THE RIGHT TO REFUSE MEDICATIONS". 1:1 AND EDUCATION THAT WAS PROVIDED WAS INEFFECTIVE. CONTINUES TO REFUSE.
--- NOTE | 2019-11-07 17:41 | NUR ---
PATIENT TOOK WOUND DRESSINGS OFF SHOULDER PRIOR TO SHOWER AND REFUSED TO HAVE DRESSING PUT BACK ON. PATIENT STATED "I KNOW I PICK AT THEM AND I DON'T WANT DRESSING ON THEM PERIOD.
[2019-11-07 20:00] VITALS: BP 105/54
--- NOTE | 2019-11-07 22:51 | NUR ---
Patient alert and oriented to person,place,time and situation. Mood is irritable and demanding. Patient can be intrusive at times. No SI/HI noted. Denies any hallucinations at this time. No memory deficits noted. Patient asked "could I have a couple more blankets, I'm cold". This nurse brought her a few blankets,patient said "thank you,what is your name." This nurse told patient this nurse's name and patient said "thank you again,Tia and I will get a hold of Tye Pena for you". Patient had no HS medications due so this nurse could not determine if patient is compliant. Provided 1:1 for emotional support. Redirected when needed. Plan to continue to encourage medication compliance. Also continue to offer emotional support and redirect when needed/appropriate. Will continue to monitor moods/behaviors. Q 15 minute safety checks continued and maintained. See [facility] flowsheet for further documentation.
--- NOTE | 2019-11-08 00:27 | NUR ---
24 HR chart check completed.
--- NOTE | 2019-11-08 03:33 | NUR ---
Spoke with Tia nurse caring for patient and informed her that wound care orders were still needed at this time.
--- NOTE | 2019-11-08 04:54 | NUR ---
Patient slept approx. 8 hours throughout shift with a few awakenings. Q 15 minute safety checks continued and maintained.
[2019-11-08 06:11] LABS: BASO % 0.4 % (0.0-1.0); EOS # 0.1 10*3/uL (0.0-0.4); EOS % 1.6 % (1.0-4.0); HEMATOCRIT 37.7 % (37.0-47.0); LYMPH % 39.4 % (27.0-41.0); MEAN CELL VOLUME 94.5 fl (81.0-99.0); MEAN CORPUSCULAR HGB 30.6 pg (27.0-31.0); MEAN CORPUSCULAR HGB CONC 32.4 g/dl (33.0-37.0); MEAN PLATELET VOLUME 11.9 fl (9.6-12.3); MONO # 0.4 10*3/uL (0.1-1.0); MONO % 5.3 % (3.0-9.0); NEUT # 4.1 10*3/uL (2.3-7.9); PLATELET COUNT AUTOMATED 257 10*3/uL (130-400); RED BLOOD COUNT 3.99 10*6/uL (4.10-5.10); RED CELL DISTRI WIDTH 14.1 % (0-14.5); WHITE BLOOD COUNT 7.7 10*3/uL (4.8-10.8)
[2019-11-08 06:46] LABS: ALBUMIN 3.1 gm/dl (3.1-4.5); ALKALINE PHOSPHATASE 111 U/L (45-117); BUN 9 mg/dl (7-24); CHLORIDE 109 mmol/L (98-107); CHOLESTEROL 184 mg/dL (<200); CREATININE 0.66 mg/dL (0.55-1.02); HDL CHOLESTEROL 43 mg/dl (40-60); LDL CHOLESTEROL 118 mg/dL (9-159); POTASSIUM 3.6 mmol/L (3.5-5.1); SGOT/AST 17 IU/L (3-35); SGPT/ALT 18 U/L (12-78); SODIUM 141 mmol/L (136-145); TOTAL PROTEIN 6.2 gm/dL (6.4-8.2); TRIGLYCERIDES 116 mg/dl (<150); VLDL CHOLESTEROL 23 mg/dL (6-40)
[2019-11-08 07:56] VITALS: BP 119/72
--- NOTE | 2019-11-08 08:00 | NUR ---
Patient eating in dining room with no c/o discomfort. Respirations easy and regular. Vital signs stable. No overt distress. SHARMILA GONZALES
[2019-11-08 08:04] LABS: VITAMIN D, 25-HYDROXY 23.6 ng/mL (30-100)
--- NOTE | 2019-11-08 08:10 | NUR ---
EUGENIA PRINGLE CNP ON UNIT TO ASSESS PATIENT.
--- NOTE | 2019-11-08 08:30 | NUR ---
Treatment Plan meeting was held with Dr. Santos, MATT Galdamez, RN, PICTURE FRAMER-S and Recycling Manager. Plan for discharge Next week. Pt. will return to [facility].
--- NOTE | 2019-11-08 09:03 | NUR ---
SPEECH PATHOLOGY Nursing screen completed. Patient does not require speech pathology services a this time. This dept. will remain available should future needs arise. ANDREW MONIQUE MSCCC-BRAND MARKETING MANAGER
--- NOTE | 2019-11-08 09:16 | NUR ---
Patient eating in dining room with no c/o discomfort. Respirations easy and regular. Vital signs stable. No overt distress. SHARMILA GONZALES
--- NOTE | 2019-11-08 09:21 | NUR ---
Pt stating that she had shoes, a jacket and $7 when she left facility. Facility confirmed that pt did have jacket and shoes and was given $9 the morning she was transferred to [facility]. Call placed to nurse "Anaya" at [facility], states that she found a note that read pt was in hallway throwing shoes. States she would look for these belongings and call [facility] with findings.
--- NOTE | 2019-11-08 09:57 | NUR ---
EUGENIA PRINGLE CNP MADE AWARE OF PT REFUSING AM MEDICATIONS. Rahul PRINGLE CNP IS AWARE OF PT'S TSH LEVEL.
--- NOTE | 2019-11-08 10:27 | NUR ---
Patient is demanding and argumentative this AM - raising her voice to multiple staff. An example of this: Pt was angry that her drinks were removed from the activity room when pt went to her room. Pt demanded replacements. Pt also stated that she was not mentally ill, did not have to take medications, and that anyone that would not allow pt to talk to her family and guardian would be in trouble. Staff discussed and agreed on setting limits with pt in order to control pt's behaviors.
--- NOTE | 2019-11-08 14:59 | NUR ---
Spoke with pt's legal guardian Janette Corie and provided pt update to her. Janette stated that she approves of forced medicating of pt if this becomes necessary. Janette also informed this web content writer that the [facility] lead software qa engineer Katherine had left Janette a message and the plan is for Janette to speak to Katherine tomorrow AM. Janette then requested to speak to pt. Took pt the phone. Observed pt as she spoke on the phone. At first pt was pleasant but then her voice began to escalate, she voiced accusatory statements to Janette, swore at her, and then hung up the phone on her.
--- NOTE | 2019-11-08 15:21 | NUR ---
PT HAS BEEN ARGUMENTATIVE AND DEMANDING THIS SHIFT, OCCASIONALLY VULGAR WITH STAFF IF SHE DOES NOT QUICKLY GET HER WAY. PT REDIRECTED. LIMIT SETTING PROVIDED. EDUCATED ON TREATMENT PLAN. PT SOMEWHAT RECEPTIVE TO REDIRECTION. LIMIT SETTING EFFECTIVE PATIENT WILL CALM AFTER BOUNDARIES REINFORCED. PT EDUCATED ON TREATMENT PLAN. STATES THAT SHE WILL TAKE HER ARISTADA ON THE 10TH, BUT CONTINUES TO REFUSE PO VITAMINS AND MEDICATIONS. WILL CONTINUE TO MONITOR PT'S BEHAVIORS AND MOOD. WILL CONTINUE TO REDIRECT AND PROVIDE LIMIT SETTING APPROPRIATE. Q 15 MIN MONITORING PER POLICY FOR SAFETY.
--- NOTE | 2019-11-08 15:45 | NUR ---
Shift chart check completed.
--- NOTE | 2019-11-08 23:49 | NUR ---
24 HR chart check completed.
--- NOTE | 2019-11-09 00:28 | NUR ---
PT SAT IN THE DINING ROOM FOR A WHILE. SHE HAS BEEN PLEASANT WITH STAFF & COMPLIANT WITH UNIT RULES WITH NO SARCASM VOICED. ALERT & ORIENTED X 4. HAS MADE NO DEMANDS & HAS BEEN WELL MANNERED WITH STAFF WITH VERBAL INTERACTION. DRANK FLUIDS FOR SNACK. NO DELUSIONAL STATEMENTS VOICED. DOES CONTINUE TO REFUSE WOUND CARE TO SHOULDERS & BACK. REQUESTED TO TAKE A SHOWER & WAS INDEPENDENT. NO PHYSICAL COMPLAINTS VOICED.
--- NOTE | 2019-11-09 04:22 | NUR ---
Recommend follow up for wound care in outpatient setting patient refused at this time.
--- NOTE | 2019-11-09 05:13 | NUR ---
PT HAS SLEPT QUIETLY PAST 2100 WITH A BRIEF AWAKENING TO GO TO THE BATHROOM. SHE WAS HEARD LAUGHING IN HER ROOM BRIEFLY. APPROX 8.5 HOURS
--- NOTE | 2019-11-09 07:11 | NUR ---
IP na per [place] Medicaid online portal. Auth # [id number]
[2019-11-09 07:34] VITALS: BP 115/58
--- NOTE | 2019-11-09 07:45 | NUR ---
Patient eating breakfast in dining room with peers. Respirations easy and regular. Vital signs stable. No overt distress. HARLEEN TRUONG and team on unit to see pt this AM. Aware pt refusing meds. updated via telephone.
--- NOTE | 2019-11-09 08:25 | NUR ---
Treatment Plan meeting was held with Dr. Santos, RN, SALES AGENT MARINE INSURANCE-S and Unemployment Claims Adjudicator. Plan for discharge Wednesday. Pt. will return to [facility].
--- NOTE | 2019-11-09 10:24 | NUR ---
Spoke with Katherine, the [facility] drywall stripper, and provided her with pt information. Spoke with pt's guardian Janette Fontenot and provided her with pt update. Pt has been pleasant with this functional tester typewriters this AM. Pt began to get upset when her drinks were removed from the activity room. However, she quickly calmed when she was told that she could have another cup of coffee. This functional tester typewriters overheard pt voicing delusional statements to the [facility] drywall stripper about medications and [facility], but pt did not voice any delusions directly to this functional tester typewriters.
--- NOTE | 2019-11-09 11:29 | NUR ---
Clinical Updates faxed to [facility] Attn: Bernadette [phone]. Spoke with Bernadette who advised that she is off today. Call placed to [facility] and Left voice Message for Nadiya Royalp Strong Nitric Operator to inquire about Apeal Hearing.
--- NOTE | 2019-11-09 17:36 | NUR ---
Pt refused Lipitor. Attempted to offer education re: importance for medication, pt refused to state why she didn't want to take this medication.
[2019-11-09 20:00] VITALS: BP 136/76
--- NOTE | 2019-11-09 21:34 | NUR ---
24 HR chart check completed.
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
--- NOTE | 2019-11-10 06:03 | NUR ---
PATIENT SLEPT OVER 7 HOURS LAST NIGHT.
--- NOTE | 2019-11-10 06:07 | NUR ---
This nurse and nurse caring for patient Cande RN went to assess skin at this time. This nurse stated may I take a look at your skin and patient stated No. Unable to redirect at this time for visualizations of skin impairments.
--- NOTE | 2019-11-10 06:08 | NUR ---
PATIENT CONTINUES TO REFUSE TO HAVE WOUNDS TO BACK EVALUATED.
[2019-11-10 07:30] VITALS: BP 132/74
--- NOTE | 2019-11-10 07:36 | NUR ---
Patient eating breakfast in dining room at this time. Respirations easy and regular. Vital signs stable. No overt distress. HARLEEN TRUONG
--- NOTE | 2019-11-10 08:15 | NUR ---
Treatment Plan meeting was held with Denice GUTIERREZ, RN, PLASTER MODEL AND MOLD MAKER-S and Front End Technician. Plan for discharge Wednesday/Wednesday. Received Call from [facility] and they have declined referral, they are unable to meet patient needs.
--- NOTE | 2019-11-10 08:15 | NUR ---
Treatment Plan meeting was held with MATT Galdamez, RN, TREATER-S and Certified Shorthand Reporter. Plan for discharge Wednesday. Pt. will return to [facility]. Spoke with Denice concerning [facility] Request for Cov-19 test with negative results prior to return to facility.
--- NOTE | 2019-11-10 09:00 | NUR ---
PT RECIEVED ARISTADA 882MG IM THIS DATE, PT TOLERATED WELL.
--- NOTE | 2019-11-10 11:23 | NUR ---
Pt pleasant this AM with this teletypewriter installer and her peers. Pt did not voice any delusional content while interacting with this teletypewriter installer.
--- NOTE | 2019-11-10 17:26 | NUR ---
PT CONTINUES TO REFUSE LIPITOR AT THIS TIME SAYS THERE IS NO PURPOSE OF CONTINUEING IT.
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
--- NOTE | 2019-11-10 19:43 | NUR ---
24 HR chart check completed.
[2019-11-10 19:52] VITALS: BP 118/87
--- NOTE | 2019-11-10 21:50 | NUR ---
P-C/O ANXIETY I-PROVIDE 1:1 FOR VERBAL INTERVENTION & EMOTIONAL SUPPORT. MONITOR SLEEP & EFFECTIVENESS OF PRN ATIVAN R-PT SAT QUIETLY IN THE DINING ROOM THIS EVENING. SHE HAS BEEN CALM & KEPT TO HERSELF. PLEASANT WITH STAFF & COMPLIANT WITH UNIT RULES. ALERT TO PERSON, PLACE & APPROX TIME. HAS MADE NO DEMANDS & HAS BEEN WELL MANNERED WITH STAFF. STATED "I FEEL REAL GOOD. I HAD MY SHOT TODAY & MAY GET TO GO HOME ON WEDNESDAY". NO DELUSIONAL STATEMENTS VOICED. ATE SNACK. DOES CONTINUE TO REFUSE WOUND CARE TO SHOULDERS & BACK. DID C/O HAVING ANXIETY & REQUESTED & MEDICATED WITH ATIVAN 1 MG PO @ 2052. STATED SHE WAS "ANXIOUS ABOUT MY DAUGHTER". P-CONTINUE TO MONITOR
--- NOTE | 2019-11-11 04:14 | NUR ---
ATIVAN HAS BEEN EFFECTIVET. PT HAS SLEPT PAST 2129
[2019-11-11 07:43] VITALS: BP 116/86
--- NOTE | 2019-11-11 08:24 | NUR ---
DR BEARDEN ON UNIT TO ASSESS PT. UPDATE PROVIDED.
--- NOTE | 2019-11-11 16:28 | NUR ---
P: PT ARGUEMENTATIVE THIS MORNING WITH STAFF RE: NOT BEING ABLE TO MAKE PHONE CALLS. PT REFUSED HER MULTIVITAMIN THIS AM AND TOOK 1 OF 2 VITAMIN D. PT MOOD IS IRRITABLE AT TIMES WITH STAFF, MORE PLEASANT THE DAY PROGRESSED. I: PROVIDE EMOTIONAL SUPPORT AND 1:1 FOR PT TO VOICE FEELINGS, PROVIDE REDIRECTION AND DIVERSIONAL ACTIVITIES, ENCOURAGE MED COMPLIANCE. R: PT ALERT TO PERSON, PLACE AND TIME. PT CONTINUED TO REFUSE HER MULTIVITAMIN AND 1 OF HER VITAMIN D STATING "I DON'T NEED 2. NO HALLUCINATIONS OR DELUSIONS NOTED. PT DENIES ANY SUICIDAL THOUGHTS, VERBALLY CONTRACTS FOR SAFETY. PT AMBULATORY THROUGHTOUT UNIT, GAIT STEADY. PT CONTINENT OF BOWEL AND BLADDER. P: MONITOR PT BEHAVIORS ON Q15 MIN SAFETY CHECKS, ENCOURAGE MED COMPLIANCE AND PROVIDE MED EDUCATION, CONTINUE TO PROVIDE EMOTIONAL SUPPORT AND 1:1 FOR PT TO VOICE FEELINGS, PROVIDE DIVERSIONAL ACTIVITES AND REDIRECTION NEEDED.
[2019-11-11 20:00] VITALS: BP 115/79
--- NOTE | 2019-11-11 21:41 | NUR ---
Patient alert and oriented to person,place,time and situation. Mood is calm but isolative to self in diningroom during snacks. Patient can be intrusive at times. No SI/HI noted. Denies any hallucinations at this time. No memory deficits noted. Patient compliant with HS medications without any difficulty. Provided 1:1 for emotional support. Redirected when needed. Plan to continue to encourage medication compliance. Also continue to offer emotional support and redirect when needed/appropriate. Will continue to monitor moods/behaviors. Q 15 minute safety checks continued and maintained. See [facility] flowsheet for further documentation.
--- NOTE | 2019-11-12 00:20 | NUR ---
24 HR chart check completed.
--- NOTE | 2019-11-12 05:25 | NUR ---
Patient slept approx. 7 hours of sleep throughout shift. Patient has refused skin assessment to be done this shift. Q 15 minute safety checks continued and maintained.
--- NOTE | 2019-11-12 07:40 | NUR ---
and team on unit to see pt at this time, update given. Nancy [facility]- saw pt this am, update given.
[2019-11-12 08:00] VITALS: BP 126/78
--- NOTE | 2019-11-12 08:10 | NUR ---
Patient resting quietly. Respirations easy and regular. Vital signs stable. No overt distress. SHARMILA GONZALES
--- NOTE | 2019-11-12 11:00 | NUR ---
Pt refused shower and skin assessment at this time despite encouragement and education.
--- NOTE | 2019-11-12 16:36 | NUR ---
P- Arguementative this AM with staff re: making phone calls to guardian about visiting family for Easter and hospital discharge. Selective with medications. Noted to be mumbling to self under breath at times. Interacts well with peers. Refused shower and skin assessment. I- Orientation, mood and behaviors assessed. Assessed pt for SI/HI, intent or plan. Assessed pt for SI/HI, intent or plan. Assessed pt for s/s hallucinations, paranoia and/or delusions. Medications administered as per physicians orders. R- Pt is alert and oriented x3. Memory appears to be intact. Resps easy and even on room air. Mood slightly irritable this AM, pt arguementative with staff regarding calling guardian about visiting family for Easter and demanding for staff to assure her that she will be discharged tomorrow. Attempts to redirect pt unsuccessful. Pt spoke with [facility] regarding these issues. Call was placed to guardian by DIRECTOR OF STRATEGIC SOURCING regardig pt request. DIRECTOR OF STRATEGIC SOURCING assured pt that discharge would be discussed further tomorrow. Pt less arguementative and mood improved as day progressed. Pt interacts well with peers. Pt denies SI/HI, intent or plan. Pt denies hallucinations, no response to internal stimuli noted. No paranoia or delusions noted. Pt continues to be selective with medications, pt took AM Synthroid and 1 of 2 tablets of Vitamin D. Pt refused AM dose of multivitamin. Pt initially refused 1800 dose of Lipitor then agreed to take it. As 2nd RN went to obtain Lipitor for pt, pt heard mumbling under her breath "Just you wait until I get my medical marijuana!" No aggressive behaviors displayed. No elopement attempts. P- Plan to continue current treatment, continue to monitor mood and behaviors, provide appropriate reorientation, redirection and 1:1 as needed. Continue to encourage medication compliance as well as group attendance and participation.
[2019-11-12 20:00] VITALS: BP 127/75
--- NOTE | 2019-11-12 21:28 | NUR ---
Patient alert and oriented to person,place,time and situation. Mood is calm but isolative to self in diningroom during snacks. Patient can be intrusive at times. No SI/HI noted. Denies any hallucinations at this time. No memory deficits noted. Patient did not have any HS medications due at this time so unable to assess medication compliance. Provided 1:1 for emotional support. Redirected when needed. Plan to continue to encourage medication compliance. Also continue to offer emotional support and redirect when needed/appropriate. Will continue to monitor moods/behaviors. Q 15 minute safety checks continued and maintained. Patient refused skin assessment to be done at this time. See [facility] flowsheet for further documentation.
--- NOTE | 2019-11-12 21:45 | NUR ---
Medicated with Klonopin po given as per order and at request of patient. Patient said "Could I have something to calm my nerves." Will monitor moods/behaviors.
--- NOTE | 2019-11-13 02:12 | NUR ---
24 HR chart check completed.
--- NOTE | 2019-11-13 05:20 | NUR ---
Patient slept approx. 6 hours throughout shift. Q 15 minute safety checks continued and maintained.
--- NOTE | 2019-11-13 05:43 | NUR ---
This nurse and nurse caring for patient Tia RN went to assess skin at this time. This nurse stated may I take a look at your skin and patient stated No and started using profanity. Unable to redirect at this time for visualizations of skin impairments.
[2019-11-13 07:31] VITALS: BP 119/91
--- NOTE | 2019-11-13 08:38 | NUR ---
Patient in dining area with peers. Respirations easy and regular. Vital signs stable. No overt distress. SHARMILA GONZALES
--- NOTE | 2019-11-13 10:50 | NUR ---
SPOKE WITH DR OVIEDO AT [phone] RE: PT DISCHARGE FOR TODAY. PER DR BEARDEN THEY WILL COMPLETE THE RAPID COVOID TEST. NO FURTHER ORDER AT THIS TIME.
--- NOTE | 2019-11-13 10:54 | NUR ---
MIHAI MALDONADO RN ON UNIT TO PERFORM RAPID COVOID TEST.
--- NOTE | 2019-11-13 10:59 | NUR ---
Left Message for Diandra Leblanc Utility Operator at [facility] concerning discharge plans and Follow up precautions.
--- NOTE | 2019-11-13 11:14 | NUR ---
COVID TEST COMPLETE AT THIS TIME, PT RESULTS NEGATIVE.
--- NOTE | 2019-11-13 11:19 | NUR ---
Left Message for Jamal network engineer administrator at [facility] to discuss discharge Planning.
[2019-11-13] MEDS ORDERED: ARISTADA882 MG/3.2 IM (11:32)
[2019-11-13] MEDS ORDERED: CLONAZEPAM1 MG PO (11:32)
--- NOTE | 2019-11-13 11:35 | NUR ---
Spoke with Nadiya Leblanc Combination Saw Operator at [facility] concerning Plans to discharge Patient today. Clinical Updates and Covid Testing Sent to [facility] Via Fax. Combination Saw Operator States that Corporate must approve return prior to discharge.
--- NOTE | 2019-11-13 11:40 | NUR ---
Pt was irritable this AM. Pt voicing negative comments about nursing and LOG TRUCK DRIVER. Pt requested to speak to her guardian. Assisted in making call to Janette Fontenot, pt's guardian. Pt was verbally abusive to her guardian during the call and hung up on her. Spoke with guardian after call was placed for pt and provided update to guardian.
--- NOTE | 2019-11-13 12:48 | NUR ---
Spoke with Jamal the service administrator at [facility]. Jamal states that patiet is "Unable to return to facility due to no isolation rooms" Pt. would require Isolation at return to facility and they are unable to accomodate with patient need to self isolate upon return due to no appropriate rooms. Nursing Staff Notified.
--- NOTE | 2019-11-13 12:48 | NUR ---
DR BEARDEN ON UNIT TO ASSESS PT, UPDATE PROVIDED.
--- NOTE | 2019-11-13 14:29 | NUR ---
Spoke with pt's guardian Janette Fontenot and informed her of conversation between Jamal Israel, [facility] storage administrator, and Fely Guajardo, technical planner. Janette stated that she contacted the [facility]. This screen writer then phoned eron Arevalo and provided further details to her. Per Leelee, [facility] must accept pt back. Leelee stated that she has left a message for Jamal and for the healthcare social worker Diandra at [facility]. Leelee stated that she will contact this screen writer once she has spoken to Jamal or Diandra. Leelee further stated to plan for pt discharge for tomorrow.
--- NOTE | 2019-11-13 14:45 | NUR ---
P: PT ANGRY/IRRITABLE WITH STAFF DUE DISCHARGE BEING PLACED ON HOLD. PT MOOD IS LABILE. PT INTRUSIVE/DISRUPTIVE TO HENRIK RAISING HER VOICE AND YELLING AT STAFF. PT DEMANDING TO SPEAK WITH HER GUARDIAN AND FOR STAFF TO CALL THE MAYOR. PT SELECTIVE WITH AM MEDS, REFUSED MULTIVITAMIN AND TOOK 1 OF 2 VITAMIN D PILLS. I: PROVIDE EMOTIONAL SUPPORT AND 1:1 FOR PT TO VOICE FEELINGS, PROVIDE LOW STIMULATION ENVIRONMENT FOR PT TO CALM. CALLED PT GUARDIAN AND LEFT A MESSAGE FOR HER TO RETURN THE CALL TO SPEAK WITH THE PT. ADVISED PT THAT WE ARE UNABLE TO CALL THE MAYOR TO REMEDY HER DISCHARGE SITUATION THAT STAFF IS WORKING WITH THE AND [facility] IN ORDER TO PERPARE FOR DISCHARGE. ENCOURAGE MED COMPLIANCE AND PROVIDE MED EDUCATION R: PT ALERT TO PERSON, PLACE, TIME AND SITUATION. PT MOOD REMAINS LABILE. PT CONTINUES TO DEMAND TO SPEAK WITH HER GUARDIAN, ADVISED THAT MESSAGES HAVE BEEN LEFT FOR THE GUARDIAN TO RETURN THE CALL. PT ASKING TO SPEAK WITH NUSING MOLD CLEANER. NO HALLUCINATIONS OR DELUSIONS NOTED. PT DENIES ANY SUICIDAL THOUGHTS. PT AMBULATORY THROUGHOUT UNIT, GAIT STEADY. PT CONTINENT OF BOWEL AND BLADDER. PT CONTINUES TO BE SELECTIVE WITH MEDICATIONS, REFUSING MULTIVITAMIN AND TAKING ONLY 1 OF 2 VITAMIN D. P: ADVISED NURSING MOLD CLEANER THAT PT WISHED TO SPEAK WITH HER. NURSING SUPERVIORS REITERATED TO THE PT THAT WE ARE DOING EVERYTHING WE CAN TO PREPARE PT FOR DISCHARGE. CONTINUE TO PROVIDE EMOTIONAL SUPPORT AND 1:1 FOR PT TO VOICE FEELINGS, PROVIDE LOW STIMULATION ENVIRONMENT FOR PT TO CALM, ENCOURAGE MED COMPLIANCE, ADVISE PT THAT WE WILL LET HER KNOW WHEN HER GUARDIAN RETURN THE CALL.
--- NOTE | 2019-11-13 15:39 | NUR ---
PM GROUP PT ATTENDED AFTERNOON GROUP THERAPY AND PARTICIPATED BY PAINTING HER FINGERNAILS AND LISTENING TO MUSIC. PT EXPRESSED NO DELUSIONAL IDEATIONS WHILE IN GROUP BUT WAS AGITATED AT NOT BEING ABLE TO LEAVE THE UNIT TODAY.
--- NOTE | 2019-11-13 15:47 | NUR ---
PT DEMANDING TO CALL HER GUARDIAN, THIS NURSE ADVISED PT THAT WE HAVE LEFT MESSAGES FOR HER GUARDIAN TO RETURN HER CALL. PT IS CURSING AND YELLING OUT THIS NURSE CALLING HER A BIH. NURSE PROVIDE EMOTIONAL SUPPORT AND 1:1 FOR PT TO VOICE FEELINGS, CONTINUES TO YELL OUT, CALLING NAMES AND CURSING AT STAFF. STAFF ASKED PT TO LEAVE THE DINING ROOM IF SHE IS GOING TO CONTINUE TO YELL OUT AND CURSE. PT CONTINUES WITH BEHAVIORS. SECURITY CALLED AND PT GIVEN GEDON INJECTION PRN PER ORDERS. AFTER SHOT WAS GIVEN PT YELLED OUT, "WELL NOW IM HIGH."WILL CONTINUE TO MONITOR PT BEHAVIORS.
--- NOTE | 2019-11-13 15:59 | NUR ---
DR DAY UPDATED ON PRN GEODON GIVEN. NO FURTHER ORDERS GIVEN AT THIS TIME.
--- NOTE | 2019-11-13 16:16 | NUR ---
PT GUARDIAN CALLED IN AND ADVISED THAT THE INFORMATION FROM JANELLE SMUMERS THAT WE HAD IS INCORRECT AND THE REASON SHE CANNOT RETURN IS NOT BECAUSE OF THE PT NEEDING QUARATINED BUT IS BECAUSE THEY HAVE A POSITIVE CASE AT THE FACILITY OF TWO HOURS AGO. GLEN ADVISED THAT THEY ARE LOOKING IN ALTERNATIVE PLACEMENT.
--- NOTE | 2019-11-13 17:13 | NUR ---
MICKEYDON EFFECTIVE, PT NOTICEABLY CALMER AT THIS TIME. WILL CONTINUE TO MONITOR.
[2019-11-13 19:10] VITALS: BP 111/69
--- NOTE | 2019-11-13 21:49 | NUR ---
PT HAS SLEPT UNTIL 2114. UP INDEPENDENTLY & WENT & ATE HS SNACK. STATED, "DID YOU HEAR WHAT HAPPENED WITH ME TODAY". INFORMED PT YES I DID. SHE PROCEEDED TO INFORM ABOUT THE DAYS EVENTS. SHE REMAINED AWAKE FOR ABOUT 1/2 AN HOUR & STATED SHE WAS TIRED & RETURNED TO HER ROOM.
--- NOTE | 2019-11-14 01:25 | NUR ---
24 HR chart check completed.
--- NOTE | 2019-11-14 05:41 | NUR ---
PT HAS SLEPT APPX 9 HOURS THIS SHIFT WITH A FEW BRIEF AWAKENINGS TO GET A DRINK OF WATER.
[2019-11-14 07:42] VITALS: BP 113/81
--- NOTE | 2019-11-14 07:47 | NUR ---
Patient resting quietly with no c/o discomfort. Respirations easy and regular. Vital signs stable. No overt distress. HELEN MAZA
--- NOTE | 2019-11-14 08:44 | NUR ---
SPOKE WITH DR GORDON, AND ADVISED THAT PT IS SCHEDULED FOR DC TODAY. NO FURTHER ORDERS AT THIS TIME.
--- NOTE | 2019-11-14 09:10 | NUR ---
DR BEARDEN ON UNIT TO ASSESS PT, UPDATE PROVIDED. DR AWARE OF PT PENDING DC TODAY.
--- NOTE | 2019-11-14 10:28 | NUR ---
Left voicemail messages this AM with Diandra Patricio, bilingual social worker at [facility], and Jamal Israel, training administrator at [facility] requesting return calls to discuss pt returning to [facility] today. Spoke to pt's guardian Janette Fontenot who stated that she was told that the reason pt would not be accepted back to [facility] is because that now has a positive [place] [id number] resident. Await return calls.
--- NOTE | 2019-11-14 11:04 | NUR ---
Notified Nadiya Leblanc Pattern Marking Supervisor at [facility] that per Conversation with Gabriela and Pt. Guardian. Pt. will return to [facility] today. Advised that transportation has been arranged with [facility] to Transport with chicken picker time 1:00 p.m. Discharge Paperwork Faxed to [facility] Attn: Nadiya [phone].
--- NOTE | 2019-11-14 11:10 | NUR ---
Spoke with pt's guardian Janette Corie who stated that she just had a conversation with Leelee, the [facility]. Janette stated that Leelee had spoken to the linux server administrator of [facility] yesterday with instructions that pt must return to [facility]. Per Janette, Leelee was calling Jamal Israel, [facility] linux server administrator, immediately to reiterate that pt is returning today. Prior to Janette calling this television writer, Janette had left a message with Diandra, [facility] professor of social work, informing her of the conversation with Leelee. Informed Fely Guajardo, store planner of this and asked that she call Diandra with the time that is scheduled for pt transport.
--- NOTE | 2019-11-14 11:13 | NUR ---
PT ALERT TO PERSON, PLACE, TIME AND SITUATION. PT MED REMAINS SELECTIVE WITH MEDICATIONS, REFUSING MULTIVITAMIN AND TAKING 1 OF 2 VITAMIN D, MED EDUCATION PROVIDED, PT REMAINS SELECTIVE, DR DAY AND NOE DRIVER MANAGER AWARE. PT MOOD REMAINS IRRITABLE AT TIMES PER BASELINE. NO HALLUCINATIONS OR DELUSIONS NOTED. PT DENIES ANY SUICIDAL THOUGHTS. PT AMBULATORY THROUGHOUT UNIT, GAIT STEADY. PT CONTINENT OF BOWEL AND BLADDER. PLAN IS TO PREPARE PT FOR DISCHARGE AND MONITOR PT BEHAVIORS ON Q15 MIN SAFETY CHECKS.
--- NOTE | 2019-11-14 11:48 | NUR ---
AM GROUP PT ATTENDED MORNING GROUP THERAPY AND PARTICIPATED BY PAINTING WITH WATERCOLORS. PT WAS TALKATIVE BUT ON TASK. PT IS PREOCCUPIED WITH DISCHARGE. PT EXHIBITED NO ADVERSE BEHAVIORS WHILE IN GROUP.
--- NOTE | 2019-11-14 11:56 | NUR ---
Received Voice Message from Jamal Israel Anesthesia Director at [facility] in which she states that "They will not be taking patient back and that if Patient does Arrive at the Building The Will not accept her Back, We do not have an isolation room and Are Following CMS guidelines and cannot take her back" Notified YOSI Turner. Cancelled Transportation.
--- NOTE | 2019-11-14 12:22 | NUR ---
Referral faxed to [facility] Attn: Katherine .
--- NOTE | 2019-11-14 12:25 | NUR ---
SPOKE WITH DR GORDON AND ADVISED THAT PT WILL NOT BE DISCHARGED TODAY OF RIGHT NOW. NO FURTHER ORDERS AT THIS TIME.
--- NOTE | 2019-11-14 13:24 | NUR ---
Referral to [facility] Attn: Cindy [phone].
--- NOTE | 2019-11-14 13:36 | NUR ---
Left Message for Admissions at [facility].
--- NOTE | 2019-11-14 13:44 | NUR ---
Notified negra Mckoy, that the crm administrator of [facility] left a message with Fely Guajardo, case planner, that pt will not be accepted back to [facility] and that if pt would be transported there, pt would be turned away at the door. Notified pt's guardian of the same. Spoke with Leelee again who stated that she is working with her burning supervisor and with the [facility] to attempt to resolve this. Received a call from negra Mckoy, stating that [facility] continues to refuse the return of the patient even with intervention at the state level. Confirmed with Leelee that essentially at this time, pt is homeless. Phoned pt's guardian who stated that she doesn't have a preference in location of NF for pt. Informed guardian that referrals have been made to [facility] and [facility], as each has a behavioral unit. Left a voicemail message with Diandra, rn social work at [facility], requesting names of NFs where referrals have been sent for pt.
--- NOTE | 2019-11-14 14:32 | NUR ---
Left Message for Ree Nicole manager java /Marketing at of [facility] concerning Referral. Spoke with Katherine at [facility] and Faisal has declined but has sent referral on to central intake for review and Milly Roland is reviewing now.
--- NOTE | 2019-11-14 14:43 | NUR ---
Received a call from 's guardian Janettekevin Fontenot. She stated that she made a submitted a formal complaint with [place] [facility] against [facility]. Janette further stated that she received a call back from [facility] and the caller is"just as baffled as us with Ines Espinoza's actions." Per Janette, the [facility] premium service representative was going to speak to her furnace room supervisor for further direction.
--- NOTE | 2019-11-14 14:48 | NUR ---
Spoke to Diandra, social media analyst at [facility], who provided list of referrals for pt to other s. s that have no beds in behavioral unit: [facility], [facility], [facility], [facility], [facility], and [facility]. Pending referrals are: [facility] (contact Rayna), [facility] (contact Ely), [facility] (contact Savi), [facility] (contact Sowmya). While on the phone with this procedure writer, Diandra received a call from Savi of [facility] stating that pt is most likely not appropriate for [facility] but may be for [facility]. Savi is forwarding pt info to [place].
--- NOTE | 2019-11-14 14:49 | NUR ---
Referral to [facility]. Left Message for Bruce in Admissions.
--- NOTE | 2019-11-14 15:03 | NUR ---
Spoke with Sowmya at [facility] who [facility] [employer]celain [employer]isher had sent referral to concerning Referral. Sowmya Requested further updates and Clinicals along with Nurses Noted. Faxed information to [facility] Attn: Sowmya [phone].
--- NOTE | 2019-11-14 15:34 | NUR ---
PM GROUP PT ATTENDED GROUP AND PARTICIPATED IN ALL ACTIVITIES. PT WAS VERY TALKATIVE AND EXPRESSED SEVERAL DELUSIONAL IDEATIONS PER HER BASELINE, ie, "THE NURSES ARE GOING IN A CHANGING THE DOCTORS ORDERS", "I AM NOT MENTALLY ILL SO IT'S ILLEGAL FOR THEM TO FORCE A GUARDIAN ON ME", "MY PAYEE AND GUARDIAN ARE TAKING ALL OF MY MONEY AND THE PSYCH DOCTORS ARE RIPPING OFF THE INSURANCE COMPANIES." I ALLOWED PT TO VENT AND ATTEMPTED REDIRECTION BY ASKING OPEN ENDED QUESTIONS, BUT PT WOULD [place] BACK AROUND. PT EXHIBITED NO AGGRESSIVE BEHAVIORS WHILE IN GROUP.
--- NOTE | 2019-11-14 15:43 | NUR ---
Shift chart check completed.
[2019-11-14 19:01] VITALS: BP 111/66
--- NOTE | 2019-11-14 19:45 | NUR ---
24 HR chart check completed.
--- NOTE | 2019-11-14 22:36 | NUR ---
PT HAS BEEN PLEASANT THIS EVENING. ALERT & ORIENTED X4. SHE SAT IN THE DINING ROOM & ATE SNACK. PLEASANT INTERACTIONS WITH STAFF. SHE ASKED RN, "DID YOU HEAR WHAT HAPPENED TODAY & WHY I WASNT DISCHARGED?" INFORMED HER THAT I HAD. SHE PROCEEDED TO TALK & VOICE HER FRUSTRATIONS ABOUT JANELLE SUMMERS & FEELS THEY ARE NOTHING BUT LIARS. SUPPORT PROVIDED. NO SIGNS/SYMPTOMS OF SENSORY DISTURBANCE NOTED.
--- NOTE | 2019-11-15 03:30 | NUR ---
Upon discharge recommend patient to follow up for wound care in outpatient setting continue current wound care orders at discharging facility.
--- NOTE | 2019-11-15 05:23 | NUR ---
PT HAS SLEPT INTERMITTENTLY THROUGHOUT THE SHIFT FOR APPX 5 1/2 - 6 HOURS.
--- NOTE | 2019-11-15 07:50 | NUR ---
DR. BEARDEN ON UNIT TO ASSESS PATIENT.
[2019-11-15 08:00] VITALS: BP 136/89
--- NOTE | 2019-11-15 08:15 | NUR ---
Treatment Plan meeting was held with Dr. Santos, MATT Galdamez, RN, AT, A OPERATOR-S and Director Workers Compensation. Plan for discharge unclear. Facility in which patient resided LTC has refused to let her Return so alternate placement is sought. Referrals have been faxed and Pending.
--- NOTE | 2019-11-15 08:16 | NUR ---
Patient resting quietly with no c/o discomfort. Respirations easy and regular. Vital signs stable. No overt distress. HELEN MAZA
--- NOTE | 2019-11-15 11:32 | NUR ---
AM GROUP PT ATTENDED MORNING GROUP THERAPY AND PARTICIPATED IN ALL ACTIVITIES. PT WAS TALKATIVE BUT LESS DELUSIONAL/ACCUSITORY AND MORE ON TOPIC. PT EXHIBITED NO ADVERSE BEHAVIORS WHILE IN GROUP.
--- NOTE | 2019-11-15 11:42 | NUR ---
Spoke with Bruce at [facility] concerning Referral. They currently are not accepting patients due to Positive Virus Cases.
--- NOTE | 2019-11-15 11:47 | NUR ---
Spoke with Ely in admissions at [facility]. Referral Declined.
--- NOTE | 2019-11-15 12:01 | NUR ---
Spoke with Riaz at [facility]. Riaz was unable to find the referral that was faxed, Refaxed to alternate number [phone].
--- NOTE | 2019-11-15 12:17 | NUR ---
Spoke with Diandra, social professionals at [facility], who stated that she received confirmation that pt was denied at [facility] and that [place] is full. Phoned pt's guardian Janette and inquired about further guidance from the [facility]. Per Janette, the sales representative marine supplies at [facility] stated that [facility] offered a revision to NFs on 11/13/19 that no longer holds NFs to strict adherence to admission guidelines due to the COVID pandemic. Janette was told that there is little that they can do at this time.
--- NOTE | 2019-11-15 14:23 | NUR ---
No adverse moods or behaviors this shift. Pt is A+Ox4. Memory appears to be intact. Resps easy and even on room air. Mood is stable this shift, affect bizarre at times but no inappropriate behaviors or outbursts noted this shift. Pt denies SI/HI, intent or plan. Pt denies hallucinations, no response to internal stimuli noted. No overt paranoia or delusions noted. Medication compliant with exception of Vitamin D, pt will only take one capsule of the two ordered capsules. No aggressive behaviors or elopement attempts made. Pt interacts well with staff/peers this shift. No distress noted. Pt agreed to take shower later this afternoon once her clothes have been washed and dried. Plan to continue current tx, continue to monitor mood and behaviors, provide appropriate reorientation, redirection and 1:1 as needed. Continue to encourage medication compliance as well as group attendance and participation.
--- NOTE | 2019-11-15 14:32 | NUR ---
Additional Clinicals and Copy of PASRR sent to [facility] Attn: Melonie.
--- NOTE | 2019-11-15 15:02 | NUR ---
Spoke with Janette Fontenot, pt's guardian, who stated that she had spoken to pt's son Fawad Hodge. Per Janette, Fawad is permitted to call pt daily but pt is not permitted to call her son or daughter. This sql report writer phoned Fawad and made a plan that Fawad would call pt daily around 9AM. Informed [facility] staff of this. Fawad then spoke to pt. This sql report writer met with pt after the phone call and explained to her that Fawad will be permitted to phone pt daily at 9AM but that pt continues to not be permitted to phone her son and daughter. Pt voiced understanding. Pt then began to speak about [facility] and that they are holding people against their will and that there is no COVID there. Pt provided details of when she escaped. She also spoke of finding baby birds on the ground when she was a child. Pt laughed in a bizarre manner when she spoke of the birds and how funny it was to think that they may have fell to the ground when they were hatching. Pt spoke of previous psychiatrists and their threatening power over pt. She also spoke of [facility] and that there was someone there that was supposed to help her get a hearing.
--- NOTE | 2019-11-15 15:10 | NUR ---
Spoke with pt's guardian who provided other NFs to make referrals to for pt: [facility] [phone], [facility] [phone], [facility] , [place] [phone], [facility] [phone].
--- NOTE | 2019-11-15 15:27 | NUR ---
PM GROUP PT ATTENDED AFTERNOON GROUP THERAPY AND PARTICIPATED IN ALL ACTIVITIES. PT WAS TALKATIVE AND UPBEAT. PT EXPRESSED NO DELUSIONAL IDEATIONS WHILE IN GROUP. PT WAS ON TASK AND EXHIBITED NO AGITATION OR AGGRESSION.
--- NOTE | 2019-11-15 16:03 | NUR ---
Received Call from Galilea at [facility]. Pt. is declined. They are unable to manage her needs and behaviors. Referrals faxed to [place], [facility], [facility], [place] and [facility]. Will follow in a.m.
[2019-11-15 19:01] VITALS: BP 134/69
--- NOTE | 2019-11-15 21:29 | NUR ---
Patient alert and oriented to person,place,time and situation. Mood is calm but isolative to self in diningroom during snacks. Patient can be intrusive and demanding at times. No SI/HI noted. Denies any hallucinations at this time. No memory deficits noted. Patient did not have any HS medications due at this time so unable to assess medication compliance. Provided 1:1 for emotional support. Redirected when needed. Plan to continue to encourage medication compliance. Also continue to offer emotional support and redirect when needed/appropriate. Will continue to monitor moods/behaviors. Q 15 minute safety checks continued and maintained. Patient refused skin assessment to be done at this time. See [facility] flowsheet for further documentation.
--- NOTE | 2019-11-16 00:18 | NUR ---
24 HR chart check completed.
--- NOTE | 2019-11-16 05:30 | NUR ---
Patient slept approx. 6 hours with a few awakenings throughout shift. Q 15 minute safety checks continued and maintained.
--- NOTE | 2019-11-16 07:30 | NUR ---
Patient resting quietly with no c/o discomfort. Respirations easy and regular. Vital signs stable. No overt distress. HARLEEN TRUONG
[2019-11-16 07:51] VITALS: BP 110/75
--- NOTE | 2019-11-16 08:10 | NUR ---
and on unit to see pt at this time.
--- NOTE | 2019-11-16 08:15 | NUR ---
Treatment Plan meeting was held with Dr. Santos, RN, AT, [facility] and [facility] [employer] [facility]. Plan for discharge Wednesday-Wednesday if Placement is Secured.
--- NOTE | 2019-11-16 09:09 | NUR ---
Left Message for Admissions Department at [facility].
--- NOTE | 2019-11-16 09:43 | NUR ---
PT IN DINNINGROOM AFTER SPEAKING TO SON ON THE PHONE AND ARGUING WITH SEEN OTHER X2 EPISODES. PT WAS REDIRECTED. PT CONTINUES TO LOOK OUT THE WINDOW.
--- NOTE | 2019-11-16 11:15 | NUR ---
Received Call from Dasha Nath at [facility] unable to accept Referral. Received Call from Diana at [facility]. They currently have a waiting List for Retirement Care Beds and are unable to accept referral at this time. Spoke with Jun [facility]) who is unable to accept patient at this time.
--- NOTE | 2019-11-16 11:24 | NUR ---
AM GROUP PT WAS PRESENT FOR MORNING GROUP THERAPY AND PARTICIPATED FOR A SHORT TIME. PT WAS IN A PLEASANT MOOD BUT BECAME VERY AGITATED. PT WAS YELLING AT AN UNSEEN OTHER, "I DON'T GIVE A FUCK...SO YOU THINK YOU'RE PRETTY...YOU NEED TO GET THE FUCK OUT OF MY HEAD BEFORE I BLOW!" PT WAS ASKED WHO SHE WAS SPEAKING TO AND STATED, "ALL OF YOU BITCHES! YOU'RE NOT RESPONDING TO MY REQUESTS, MY DEMANDS, MY NEEDS! NOW GO AND GET ZAINAB FOR ME NOW AND DON'T TELL ME THAT SHE'S IN A MEETING!" PT BECAME MORE AGITATED I STATED, "YOU WILL NOT SPEAK TO ME THAT WAY AND I'M NOT GOING TO RESPOND TO DEMANDS." PT PUSHED AWAY FROM THE TABLE AND SAT IN A CHAIR AND BEGAN MOCKING ME. PT WAS LEFT TO CALM HERSELF WHEN THE SW "ZAINAB" CAME IN AND ATTEMPTED TO DE ESCALATE.
--- NOTE | 2019-11-16 11:29 | NUR ---
Referral to [facility] [phone].
--- NOTE | 2019-11-16 11:39 | NUR ---
Refax to [facility] for Further Review. Spoke with Fouzia at Facility.
--- NOTE | 2019-11-16 12:11 | NUR ---
P- Labile mood, pt easily becomes angry/irritable, arguementative, possible auditory/visual hallucinations, inappropriate outbursts of vulgar language. Pt upset about having a guardian who makes her decisions, pt states "that guardian isn't legal so it's not up to her. It's up to the doctor and the electrolysis engineer". Unreceptive to reality. I- Orientation, mood and behaviors assessed. Assessed pt for SI/HI, intent or plan. Assessed pt for s/s hallucinations, paranoia and/or delusions. Medications administered as per physician's orders. Emotional support, redirection, 1:1 and multiple attempts to present/reinforce reality provided by multiple staff. Encouraged pt to attend and participate in jones milieu groups and activities. R- Pt is alert and oriented x3. Memory appears to be intact. Resps easy and even on room air. Mood labile, pt easily angry/irritable. Affect inappropriate at times. Speech is coherent, becomes loud with use of vulgar language when pt becomes upset. Pt is able to communicate effectively and makes needs known without difficulty. Pt denies SI/HI, intent or plan. Pt denies hallucinations, however pt noted through out the afternoon to be interacting with and arguing with unseen other(s). Pt is preoccupied with her belief that her guardian is "not legal" as pt states "I never had a court hearing about it and I never had a follow up rep". As a result pt disregards the fact that her legal guardian is her decision maker and when discussing discharge plan pt states "it's not up to her. It's up to the doctor and the electrolysis engineer. Virus or not you can send me in an ambulance to my dad's house". Attempts to reinforce reality are ineffective, pt becomes easily agitated and has had several outbursts of inappropriate vulgar language. Pt stormed down to her bedroom, closed the door and was heard yelling mulitple vulgarities. Pt then came back and sat down in the dining room but continues to have small outbursts of vulgar language, appears again to be arguing with unseen other(s). Staff asks pt not to use vulgar language in the dining room, pt states "Ok, yes ma'am, sorry". Pt calmly eating lunch at this time. Requested alternate tray, this was ordered for pt. Pt expressed thanks. No physically aggressive behaviors displayed. Pt continues to refuse skin assessment. P- Plan to continue current treatment, continue to monitor mood and behaviors, provide appropriate reorientation, redirection and 1:1 as needed. Continue to encourage medication compliance as well as group attendance and participation.
--- NOTE | 2019-11-16 12:45 | NUR ---
Referral to [facility] attn: Ese [phone].
--- NOTE | 2019-11-16 13:02 | NUR ---
Patient was pleasant with this contract writer in the early AM hours. Pt did not voice any delusional statements. Pt asked about her belongings at [employer]. Explained to pt that this contract writer would speak to pt's guardian about this concern. Phoned Janette Fontenot, pt's guardian, who stated that pt's belongings are secure at [employer] and would be gathered and taken to pt's new home when plan is finalized. Informed pt of this. Pt also wanted her son Fawad arias to handle her money that was at [employer]. In the later morning, pt became demanding and raised her voice to this contract writer. Pt stated that her guardianship is illegal, that she has no guardian, that a head bellhop captain in [facility] knows this and is having a hearing for pt, that she has a right to leave today, and that she expected her son to be instructed to get her money from [employer]. Allowed pt to express herself but did direct pt to lower her voice to this contract writer. Informed pt that pt does in fact have a guardian and that this contract writer must work with pt's guardian for pt's discharge planning. having a hearing for pt delusional statements.
--- NOTE | 2019-11-16 13:27 | NUR ---
[facility] to [facility] Attn: Patricia Judd [phone].
--- NOTE | 2019-11-16 13:29 | NUR ---
Notified by nursing that pt is requesting to speak to her guardian. Phoned pts' guardian Janette Corie who stated that pt does not need to be calling her frequently. Asked Janette if she would like to set a number of allowed phone calls in pt's treatment plan. Janette stated that was not necessary but to notify [facility] staff that pt should not be calling her. Janette stated that this commercial real estate underwriter could contact Janette with legitimate concerns of patient. Janette also provided other NFs to make referrals for pt: [facility] in [facility], [facility], and [facility].
--- NOTE | 2019-11-16 13:32 | NUR ---
Referral to [facility] Attn: [place] [phone]. Call placed to facility and currently no female beds in behavioral unit.
--- NOTE | 2019-11-16 14:05 | NUR ---
Additional Clinicals and Nursing Notes from last two weeks from [facility] Faxed to [facility] Attn: Patricia Judd.
--- NOTE | 2019-11-16 14:48 | NUR ---
Received Call From Kaity at [facility]. After review with [facility] they had considered patient for LTC unit they are unable to meet her needs on LTC side, looks like she would benefit from a Behavioral Unit due to Elopement Risk.
--- NOTE | 2019-11-16 15:35 | NUR ---
PM GROUP PT ATTENDED AND PARTICIPATED IN AFTERNOON GROUP THERAPY. PT WAS QUIET AND ON TASK FOR THE MOST PART BUT WAS YELLING AT "SOMEONE" AND BECAME AGITATED, ONLY TO LAUGH OUTLOUD. PT EXHIBITED NO AGGRESSION WHILE IN GROUP.
[2019-11-16 18:59] VITALS: BP 135/71
--- NOTE | 2019-11-16 21:53 | NUR ---
Patient alert and oriented to person,place,time and situation. Mood is calm but isolative to self in diningroom during snacks. Patient can be intrusive and demanding at times. No SI/HI noted. Denies any hallucinations at this time. No overt s/s of responding to internal stimuli noted at this time. No memory deficits noted. Patient did not have any HS medications due at this time so unable to assess medication compliance. Provided 1:1 for emotional support. Redirected when needed. Plan to continue to encourage medication compliance. Also continue to offer emotional support and redirect when needed/appropriate. Will continue to monitor moods/behaviors. Q 15 minute safety checks continued and maintained. Patient refused skin assessment to be done at this time. See [facility] flowsheet for further documentation.
--- NOTE | 2019-11-16 22:01 | NUR ---
Patient requested Klonopin po prn for anxiety at bedtime as per doctor's order and patient requested. Will monitor effectiveness.
--- NOTE | 2019-11-17 04:19 | NUR ---
This nurse went to evluate patient for skin impairments with Nurse caring for patient Tia RN patient argumentive at this time and refusing skin assessment.
--- NOTE | 2019-11-17 05:23 | NUR ---
Patient slept approx. 5.5 hours with a few awakenings throughout shift. Q 15 minute safety checks continued and maintained.
[2019-11-17 08:00] VITALS: BP 120/64
--- NOTE | 2019-11-17 09:08 | NUR ---
Treatment Plan meeting was held with Dr. Santos RN, AT, [facility] and Induction Heat Treater. Plan for discharge once placement is secured. Pt. is diffcult placement due to complex mental health needs and need for secure facility. Referrals have been sent and alot of facilities are full or not taking patients at this time. Working with YOSI Turner and Pt. Guardian to secure placement in appropriate facility with 24 hour supervision and care for Behavioral Issues.
--- NOTE | 2019-11-17 10:53 | NUR ---
Spoke with pt's guardian Janette Fontenot and provided an update of NFs that have declined pt.
--- NOTE | 2019-11-17 11:32 | NUR ---
AM GROUP PT ATTENDED MORNING GROUP THERAPY AND PARTICIPATED IN ALL ACTIVITIES. PT HAD A FEW OUTBURSTS OF SWEARING AT AN UNSEEN OTHER. PT EXHIBITED NO AGGRESSION WHILE IN GROUP.
--- NOTE | 2019-11-17 12:27 | NUR ---
Left Message for Admissions at [facility] [phone].
--- NOTE | 2019-11-17 12:32 | NUR ---
Left Message for [facility] [place] waste reduction coordinator Madelyn to inquire of Fax number and Bed Availability.
--- NOTE | 2019-11-17 12:43 | NUR ---
PT CONTINUES TO CURSE AND HAVE OUTBURSTS. MULTIPLE STAFF HAS TALKED TO PATIENT AND ATTEMPTED TO REDIRECT WITH LITTLE EFFECTIVENESS. PT CONTINUED TO CURSE AT STAFF YELLING "FUCK YOU" AND CALLING STAFF "BITCHES". PT SPOKE TO PRINT CONTROLLER MULTIPLE TIMES AND THIS NURSE HAD TO INTERVENE DUE TO PT YELLING AT PRINT CONTROLLER. OFFERED PT A PRN AND PT DECLINED. EXPLAINED TO THE PT IF SHE CONTINUES TO ESCULATE SHE WILL NEED TO RECEIVE A PRN TO HELP HER CALM DOWN.PT SITTING IN DINNINGROOM BY HERSELF. WILL CONTINUE TO MONITOR PT'S BEHAVIOR
--- NOTE | 2019-11-17 12:47 | NUR ---
Referrals to [facility] Attn: Yeny [phone] and Shay[facility] [phone] Attn:
--- NOTE | 2019-11-17 13:29 | NUR ---
Patricia Judd Calls from [facility]. Unable to accept patient due to elopement risk.
--- NOTE | 2019-11-17 14:50 | NUR ---
Pt demanding and raising her voice to this technical writer this afternoon. Pt made remarks such as: "I don't have a guardian, I'm not mentally ill, This is illegal, I have a hearing, I'm taking all the psychiatrists to court in [place], You have to do what I tell you to do, I didn't have a fucking say 20 years ago when they illegally gave me a guardian, I'm suing any of you that don't listen to me meera I'm being held illegally." This technical writer would instruct pt to lower her voice, which pt would do briefly and then her voice would then escalate again. Explained to pt that decisions were being made for pt by her legal guardian Janette Fontenot and this technical writer must abide by the decisions that pt's legal guardian makes.
--- NOTE | 2019-11-17 15:21 | NUR ---
Lenthy discussion between pt's guardian Janette Fontenot, Fely Guajardo, process planner, and this feature writer. Discussed all NFs that have declined pt. Janette reviewed a list of NFs supplied by [facility] that are listed as having behavioral units. New referral will continue to be made.
--- NOTE | 2019-11-17 15:43 | NUR ---
Call Received From Madelyn At [facility], No Open beds at this time. Faxed Referral [phone].
--- NOTE | 2019-11-17 15:48 | NUR ---
Spoke with Riaz at [facility] with Secure Unit [phone] Currently no openings.
--- NOTE | 2019-11-17 15:50 | NUR ---
Call Received From Madelyn At [facility]. Currently no openings. Referral Faxed to Facility [phone]. [facility] No Openings, [facility] and [facility] Cannot accpet.Referral to [facility] in [facility] Attn: Genny [phone].
[2019-11-17 19:09] VITALS: BP 128/87
--- NOTE | 2019-11-18 05:46 | NUR ---
PATIENT SLEPT 4 HOURS OF INTERRUPTED SLEEP THROUGHOUT SHIFT. Q 15 MINUTE CHECKS MAINTAINED. 24 HR chart check completed.
--- NOTE | 2019-11-18 07:30 | NUR ---
DR. BEARDEN ON UNIT TO ASSESS PATIENT.
[2019-11-18 08:00] VITALS: BP 139/82
--- NOTE | 2019-11-18 11:33 | NUR ---
P: AUDITORY AND VISUAL HALLUCINATIONS, TALKING TO GOD AT THE TABLE. PATIENT STATING "NO, NO YOU CAN'T DO THIS, MY BODY WON'T TAKE IT, THIS IS HOW MY BODY IS MADE, HE CAN'T CHANGE MY CHEST CAVITY, CAN'T CHANGE MY BREAST;, IT'S LIKE THE MEDICATIONS, HE CAN'T DO THAT. GOD LIKES DEMARCO PANDA'S BREAST BETTER THEN MINE." PATIENT ARGUING WITH GOD. PATIENT REDIRECTED AND ORIENTATED TO REALITY. PATIENT DENIES HALLUCINATIONS/DELUSIONS. STATING "HE IS GOD AND HE IS RIGHT HERE. "GOD CAN'T MAKE ME A 4X TO HAVE BIGGER TITS." GOD'S NOT GOING TO MAKE LOVE TO ME, TOUCHING YOUR TITS, HE JUST CAN'T DO IT" DEMENDING TO TALK TO SON. PER GUARDIAN, PATIENT'S SON CAN CALL IN TO TALK TO TALK WITH PATIENT. PATIENT CONTINUE TO ARGUE TO SELF, PROCCUPIED WITH GOD WANT HER TITS ALONG WITH OTHER WOMEN. MORMON DELUSIONS, NOT ABLE TO REDIRECT. I: ONE ON ONE, REDIRECTION, REORIENTED TO REALITY, ACTIVITY/MUSIC PROVIDED R: INEFFECTIVE. PATIENT IS ALERT TO PERSON, PLACE, TIME AND SITUATION; ABLE TO VOICE NEEDS. MOOD IS IRRITABLE, LOUD AND LABILE. DENIES ANY HALLUCINATIONS, DELUSIONS, HI/SI OR PAIN. RESPONDING TO INTERNAL STIMULI. TOOK ALL MEDICATIONS EXCEPT MULTIVITAMIN BECAUSE IT IS NOT A ONE A DAY VITAMIN. Q 15 MINUTE SAFETY CHECKS MAINTAINED. INDEPENDENT WITH ACTIVITIES OF DAILY LIVING, CONTINENT OF BOWEL AND BLADDER. SET UP FOR MEALS, INTAKES ARE IMPROVIING. P: CONTINUE TO MONITOR FOR AGGRESSION, EXIT SEEKING, HALLUCINATIONS AND DELUSIONS. PROVIDE ONE ON ONE, REDIRECTION/ORIENTATION, ENCOURAGE GROUP ACTIVITIES NEEDED.
--- NOTE | 2019-11-18 15:05 | NUR ---
Shift chart check completed.
[2019-11-18 20:00] VITALS: BP 126/80
--- NOTE | 2019-11-18 23:27 | NUR ---
P-DEMANDING, HALLUCINATIONS, IRRITABLE I-REDIRECTION WITH 1:1 THERAPEUTIC INTERVENTIONS AND. EDUCATE AND ENCOURAGE MEDICATION COMPLIANCE R-PATIENT MEDICATION COMPLIANT AT HS. PATIENT PROVIDED WITH NOURISHEMENT AND FLUIDS AT HS. PATIENT WITH NO SUICIDAL OR HOMICIDAL IDEATIONS. PATIENT WITH AUDITORY AND VISUAL HALLUCINATIONS AND COMMUNICATING WITH UNSEEN OTHERS. PATIENT IRRITABLE WITH NURSING STAFF AT TIMES AT HS BUT WAS REDIRECTABLE P-CONTINUE TO ENCOURAGE MEDICATION COMPLIANCE, ENCOURAGE GROUP THERAPY WHILE AWAKE
--- NOTE | 2019-11-19 05:42 | NUR ---
PATIENT SLEPT 4 HOURS OF INTERRUPTED SLEEP THROUGHOUT SHIFT. Q 15 MINUTE CHECKS MAINTAINED. 24 HR chart check completed.
[2019-11-19 07:16] VITALS: BP 124/89
--- NOTE | 2019-11-19 11:15 | NUR ---
P-DEMANDING, IRRITABLE I-REDIRECTION WITH 1:1 THERAPEUTIC INTERVENTIONS AND. EDUCATE AND ENCOURAGE MEDICATION COMPLIANCE R-PATIENT MEDICATION COMPLIANT. PATIENT WITH NO SUICIDAL OR HOMICIDAL IDEATIONS. PATIENT WITH NO HALLUCINATIONS OR DELUSIONS AT THIS TIME. PATIENT INTRUSIVE WITH OTHER PATIENTS AND NURSING STAFF. PATIENT REDIRECTED THROUGHOUT SHIFT WHEN INTRUSTIVE WITH PEERS. PATIENT ISOLATING IN QUIET ROOM AND DINING AREA. P-CONTINUE TO ENCOURAGE MEDICATION COMPLIANCE, ENCOURAGE GROUP THERAPY WHILE AWAKE
--- NOTE | 2019-11-19 15:56 | NUR ---
PRN Dulcolax one tab PO given at this time per pt request. Pt moved bowels on per records. No distress noted. Will monitor for effectiveness.
[2019-11-19 20:01] VITALS: BP 109/60
--- NOTE | 2019-11-19 23:04 | NUR ---
P-ISOLATIVE, MED NON-COMPLIANCE I-PROVIDE 1:1 WITH THERAPEUTIC INTERVENTIONS. ENCOURAGE MEDICATION COMPLIANCE AND EDUCATE. MONITOR SLEEP. R-PT REFUSED MEDICATIONS DURING HS PASS STATING, "IM NOT TAKING MY KLONOPIN TONIGHT, IM ALREADY TIRED". PT UNRECEPTIVE TO MEDICATION EDUCATION WHEN PRESENTED. ISOLATIVE TO ROOM AND BED SINCE APPROX 1999. PT DENIES SI/HI, HALLUCINATIONS OR PAIN. NO NOTED RESPONDING TO INTERNAL STIMULI. AMBULATORY WITH A STEADY GAIT, INDEPENDENT IN ADL'S, CONTINENT OF BOWEL AND BLADDER. PT CURRENTLY LAYING DOWN WITH EYES CLOSED, RESPIRATIONS EASY AND REGULAR, NO SIGNS OR SYMPTOMS OF DISTRESS NOTED. P-CONTINUE TO MONITOR MOOD AND BEHAVIORS. MAINTAIN Q 15 MIN CHECKS AND PRN FOR SAFETY.
--- NOTE | 2019-11-20 01:39 | NUR ---
24 HOUR CHART CHECK COMPLETED.
--- NOTE | 2019-11-20 06:10 | NUR ---
PATIENT OBSERVED ON Q 15 MIN CHECKS TO HAVE SLEPT APPROX 7 HOURS WITH X2 AWAKENINGS TO BRIEFLY SIT IN QUIET ROOM OR GET WATER. NO SIGNS OR SYMPTOMS OF DISTRESS NOTED.
[2019-11-20 07:31] VITALS: BP 127/78
--- NOTE | 2019-11-20 08:45 | NUR ---
DR BEARDEN ON UNIT TO ASSESS PT, UPDATE PROVIDED.
--- NOTE | 2019-11-20 10:44 | NUR ---
Follow up call to [facility] where Referral was faxed on Wednesday. Spoke geno Schwarz. Unable to accept referral due to No Behavioral Unit.
--- NOTE | 2019-11-20 11:05 | NUR ---
Left Message for Naseem Moffett in Admissions at [facility] concerning referral.
--- NOTE | 2019-11-20 11:14 | NUR ---
Left Message for Cindy Garvin in admissions at [facility] Concerning Referral [phone]. Call Placed to [facility] and Left Message for Admissions Aramis Saini .
--- NOTE | 2019-11-20 11:17 | NUR ---
Follow up to [facility] Spoke with Mis in admissions. Unable to accept patient due to elopement Risk.
--- NOTE | 2019-11-20 11:29 | NUR ---
AM GROUP PT ATTENDED MORNING GROUP THERAPY AND PARTICIPATED FULLY. PT DID TALK NONSTOP ABOUT TEMPLE ISSUES, STATING "I AM AN ATHEIST. I DON'T BELIEVE THAT CK WALKED THE EARTH, THAT'S A FAIRYTALE....GOD MADE ME PUSH MY NEIGHBORS TODDLER IN THE POOL, I WAS ONLY 4, I WOULDN'T HAVE DONE THAT....LATER HE MADE ME DRIVE TO MY FRIENDS HOUSE WHO HAD A POOL AND HE MADE ME PUT MY DAUGHTER DOWN AT THE EDGE OF THE POOL AND WALK AWAY, IT WASN'T ME, IT WAS HIM...."
--- NOTE | 2019-11-20 11:43 | NUR ---
Amarilis with Admissions at [facility]. They do not have a secure bahavioral Unit. Given Contact information for Sister Facility [facility]. Spoke with Emily in Admissions. They currently have a female Bed. Referral Faxed to Facility Attn: Emily [phone].
--- NOTE | 2019-11-20 11:51 | NUR ---
Spoke with Evangelina Booth at [facility]. Currently they have an opening for Female Behavioral Unit. Faxed Referral to [phone] Attn: Evangelina. Spoke with Ese Lee at [place] and referral is declined due to Behaviors, Elopement Risk and Cost.
--- NOTE | 2019-11-20 12:05 | NUR ---
Follow up to Referral to [facility]. No Female beds at this time.
--- NOTE | 2019-11-20 12:11 | NUR ---
Spoke with Zainab in admissions at [facility]. Pt. is not appropriate for their facility. Referral Declined.
--- NOTE | 2019-11-20 12:16 | NUR ---
Call Placed to [facility]. Facility does not have a Secure Unit.
--- NOTE | 2019-11-20 12:18 | NUR ---
Call Placed to [facility] in [facility] [phone]. They do not have a secure Unit at Facility.
--- NOTE | 2019-11-20 12:35 | NUR ---
Provided update this AM to pt's guardian, Janette Fontenot.
--- NOTE | 2019-11-20 12:38 | NUR ---
Call to [facility] they have Memory Care Only and do not accept Behavioral Health patients. Spoke with Katherine [phone].
--- NOTE | 2019-11-20 12:39 | NUR ---
Met with pt who was at first pleasant. Howver, pt became demanding ordering this financial writer to [facility] so that a hearing could be scheduled. Pt also stated that weaving loom operator Chasidy Silvestre and Denice Rodriguez told her that she could live in her own apartment or in a care home. Informed pt that pt's guardian Janette is the person with the authority to determine where pt lives.
--- NOTE | 2019-11-20 12:42 | NUR ---
Spoke with Rayna at [facility]. They are currently not accepting outside admissions due to the Cov-19 Virus.
--- NOTE | 2019-11-20 12:43 | NUR ---
Call Placed to [facility]. They are Assisted living and not a secure Unit.
--- NOTE | 2019-11-20 13:39 | NUR ---
Received Call from Camille at [facility]. They are currently not accepting patients who have been in another facility in the last 30 days.
--- NOTE | 2019-11-20 14:08 | NUR ---
Referral Faxed to [facility] [phone].
--- NOTE | 2019-11-20 14:29 | NUR ---
Received Call From [facility] and Spoke with Edith. Unable to accept patient at this time due to behaviors.
--- NOTE | 2019-11-20 14:43 | NUR ---
Spoke with Evangelina Booth Director of Social Servies at [facility], Unable to accept due to "No Clinical Need for [facility]".
--- NOTE | 2019-11-20 14:58 | NUR ---
Spoke with pt's guardian Janette Fontenot and provided her with an update of NF denials. Recommended to guardian that a discussion is needed to explore other discharge options if NFs continue to deny pt.
--- NOTE | 2019-11-20 15:37 | NUR ---
Calls placed to [facility], facility does not have a behavioral Unit and [facility], no behavioral Unit. Call Placed to [facility] and spoke with Jessi. Facility is not accepted outside of [facility] Admissions.
--- NOTE | 2019-11-20 15:38 | NUR ---
PM GROUP PT ATTENDED AFTERNOON GROUP THERAPY AND PARTICIPATED FULLY. PT WAS ON TASK BUT FOCUSED ON CALLING HER SON. PT WAS AGITATED WITH HER CHILDREN AND RANTED THE ENTIRE GROUP. I GAVE PT TIME TO VENT AND LISTENED WITHOUT COMMENT. PT CALMED HERSELF.
--- NOTE | 2019-11-20 15:43 | NUR ---
P: PT OBSERVED TO BE SEEING AND SPEAKING TO UNSEEN OTHERS. PT DELUSIONAL THINKING SHE IS BEING HELD AGAINST HER WILL. PT MOOD IS ANGRY/IRRITABLE WITH STAFF AND PEERS, PT CAN BE DEMANDING OF OTHERS, YELLS OUT AT STAFF. PT REFUSED MULTIVITAMIN I: PROVIDE EMOTIONAL SUPPORT AND 1:1 FOR PT TO VOICE FEELINGS, ENCOURAGE MED COMPLIANCE AND PROVIDE MED EDUCATION, PROVIDE LOW STIMULATION ENVIRONMENT FOR PT TO CALM, EDUCATE PT ON HER GUARDIAN AND HOW SHE WAS APPOINTED TO MAKE HER DECISIONS. RE-ORIENT AND PRESENT REALITY NEEDED R: PT ALERT TO PERSON, PLACE, TIME AND SOMEWHAT SITUATION. PT CONTINUES TO REFUSE MULTIVITAMIN. PT ABOVE BEHAVIORS CONTINUE WITH INTERMIITENT EFFECTIVENESS FROM INTERVENTIONS. PT AMBULATORY THROUGHOUT UNIT, GAIT STEADY. PT CONTINENT OF BOWEL AND BLADDER. P: MONITOR PT BEHAVIORS ON Q15 MIN SAFETY CHECKS, ENCOURAGE MED COMPLIANCE AND PROVIDE MED EDUCATION, PRESENT REALITY AND RE-ORIENT NEEDED, PROVIDE LOW STIMULATION ENVIRONMENT FOR PT TO CALM.
[2019-11-20 20:00] VITALS: BP 122/82
--- NOTE | 2019-11-20 22:13 | NUR ---
RECEIVED PRN KLONOPIN 1MG PO REQUESTED PER PATIENT.
--- NOTE | 2019-11-21 03:19 | NUR ---
P-LABILE, VISUAL/AUDITORY HALLUCINATIONS, INTERMITTENTLY INTRUSIVE WITH PEERS AND STAFF. I-ASSESS ORIENTATION, MOOD, AND BEHAVIOR. PROVIDE 1:1 WITH THERAPEUTIC INTERVENTIONS. PRESENT REALITY AND REORIENT NEEDED. PROVIDE APPROPRIATE REDIRECTION. ENCOURAGE MEDICATION COMPLIANCE AND EDUCATE. MONITOR SLEEP. R-PATIENT ALERT AND ORIENTED X2 WITH CONFUSION. PT LABILE THIS SHIFT, WILL GO FROM CALM AND PLEASANT WITH INTERACTIONS TO AGITATED AND ARGUMENTATIVE WHEN REDIRECTED. PT INTERMITTENTLY INTRUSIVE, WILL ENTER QUIET ROOM WHERE ANOTHER PEER IS RESTING OR, REACHING IN CABINETS, AND ATTEMPT TO CONTROL THE TV. PT ALSO OBSERVED TALKING TO UNSEEN OTHERS, WHEN QUESTION BY STAFF SHE STATED "GOD, HE IS ALWAYS DOING THESE THINGS TO ME". PT DENIES SI/HI, NO PHYSICAL COMPLAINTS NOTED. AMBULATORY WITH STEADY GAIT, INDEPENDENT IN ADL'S. PT LAYING DOWN WITH EYES CLOSED, RESPIRATIONS EASY AND REGULAR, NO SIGNS OR SYMPTOMS OF DISTRESS NOTED. P-CONTINUE TO MONITOR MOOD AND BEHAVIORS. MAINTAIN Q 15 MIN CHECKS AND PRN FOR SAFETY.
--- NOTE | 2019-11-21 05:54 | NUR ---
PATIENT SLEPT APPROX 4 HOURS INTERRUPTED. NO SIGNS OR SYMPTOMS OF DISTRESS NOTED.
[2019-11-21 07:46] VITALS: BP 126/78
--- NOTE | 2019-11-21 08:00 | NUR ---
Patient sitting quietly. Respirations easy and regular. Vital signs stable. No overt distress. SHARMILA GONZALES
--- NOTE | 2019-11-21 08:30 | NUR ---
Treatment Plan meeting was held with Dr. Santos, MATT Galdamez, RN, AT, WHEY DEPARTMENT OPERATOR-S and Granulating Blender. Plan for discharge once bed is secured. Pt. is difficult placement due to availability of facilities which can handle behaviors, elopement risk and bed availability due to the Chung Virus.
--- NOTE | 2019-11-21 09:36 | NUR ---
Call Placed to [facility]. Spoke with Madelin. [facility] is currently no taking admissions due to the Chung Virus.
--- NOTE | 2019-11-21 11:08 | NUR ---
Explored further discharge options for pt using [facility] facility finder. Spoke with pt's guardian Janette Fontenot this AM and provided update. Informed her that 43 referrals have been made with all being denials. After speaking with Janette, this quality analyst/technical writer phoned [facility] and left a voicemail message for their social work department requesting a return call to discuss possible NFs for pt. Await return call. Met with Martin Mcmullen RN, case managers, and updated her on status of referrals made for pt.
--- NOTE | 2019-11-21 11:32 | NUR ---
AM GROUP PT ATTENDED MORNING GROUP THERAPY AND PARTICIPATED IN ALL ACTIVITIES. PT WAS LESS AGITATED TODAY AND RANTED VERY LITTLE OPPOSED TO YESTERDAY. PT EXHIBITED NO AGGRESSION WHILE IN GROUP.
--- NOTE | 2019-11-21 11:53 | NUR ---
Spoke to pt's guardian Janette Fontenot who provided [facility] in [place] as possible NF for pt. Phoned [facility] and learned that they have a male only behavioral unit.
--- NOTE | 2019-11-21 12:03 | NUR ---
Call placed to [facility]. Spoke with Ese. Currently no accepting referrals or admissions.
--- NOTE | 2019-11-21 14:07 | NUR ---
LABILE. PT HAS BEEN LAUGHING AND TELLING JOKES, AND THEN DEMANDING TO HAVE A COURT HEARING FOR GUARDIAN. PT IS PLEASANT, COOPERATIVE, BUT REMAINS PERSISTENT THAT SHE SHOULD BE ABLE TO LIVE ON HER OWN AT A [facility]. PT EDUCATED ON TREATMENT PLAN, AND THAT STAFF MUST ABIDE BY GUARDIANS WISHES AT THIS TIME. EMOTIONAL SUPPORT PROVIDED. PT RECEPTIVE TO EDUCATION AND REDIRECTION. AGITATION ALLEVIATED WITH EMOTIONAL SUPPORT. WILL CONTINUE TO EDUCATE AND REDIRECT APPROPRIATE. Q 15 MIN MONITORING PER POLICY.
--- NOTE | 2019-11-21 14:24 | NUR ---
Spoke with a social science professor from [facility] and inquiried about possible NFs that are appropriate for pt. A list of NFs was emailed to this service writer - many of which referrals were already made. Fely Guajardo, marine air ground task force planners, will contact remaining NFs on the list.
--- NOTE | 2019-11-21 14:35 | NUR ---
Referrals to [facility] Attn: Ese [phone], Sheila at [facility] Attn: Marcelo [phone], [facility] Attn: Janette [facility] Attn: Admissions [phone], [facility] Attn: Urszula [phone], Refax to [facility] Attn: Dev [phone] and [facility] Attn: Admissions [phone].
--- NOTE | 2019-11-21 14:43 | NUR ---
Call Placed to [facility] and spoke with Fracisco. Currently no openings.
--- NOTE | 2019-11-21 14:46 | NUR ---
Call Placed to [facility] Spoke with Mis. Only Male Behavioral Unit at this facility.
--- NOTE | 2019-11-21 15:07 | NUR ---
Received Call From [facility] and Spoke with Dev. Referral Declined. Unable to meet Patient needs.
--- NOTE | 2019-11-21 15:10 | NUR ---
Multiple and lengthy conversations with pt's guardian Janette Fontenot discussing possible NFs for pt throughout the state of [place]. [facility] must remain in [place]. Pt cannot discharge to a NF in [place] or [place].
--- NOTE | 2019-11-21 15:39 | NUR ---
PM GROUP PT ATTENDED AFTERNOON GROUP THERAPY AND PARTICIPATED FULLY. PT WAS QUIET AND ON TASK. PT EXHIBITED NO ADVERSE BEHAVIORS WHILE IN GROUP.
--- NOTE | 2019-11-21 16:01 | NUR ---
Shift chart check completed.
[2019-11-21 20:00] VITALS: BP 122/83
--- NOTE | 2019-11-21 23:56 | NUR ---
P-DEMANDING I-REDIRECTION WITH 1:1 THERAPEUTIC INTERVENTIONS AND. EDUCATE AND ENCOURAGE MEDICATION COMPLIANCE R-PATIENT WITH NO SUICIDAL OR HOMICIDAL IDEATIONS. PATIENT WITH NO HALLUCINATIONS OR DELUSIONS AT THIS TIME. PATIENT INTRUSIVE AT TIMES WITH OTHER PATIENTS AND NURSING STAFF. PATIENT REDIRECTED THROUGHOUT SHIFT WHEN INTRUSIVE WITH PEERS. PATIENT ISOLATING IN ROOM THIS SHIFT. NOURISHMENT AND FLUIDS PROVIDED. PATIENT REFUSED TO ALLOW A TEMPERATURE CHECK AT 2300. PATIENT STATING "NO YOU CAN NOT CHECK MY TEMPERATURE". P-CONTINUE TO ENCOURAGE MEDICATION COMPLIANCE, ENCOURAGE GROUP THERAPY WHILE AWAKE
--- NOTE | 2019-11-22 05:54 | NUR ---
PATIENT SLEPT 8 HOURS OF INTERRUPTED SLEEP THROUGHOUT SHIFT. Q 15 MINUTE CHECKS MAINTAINED. 24 HR chart check completed.
--- NOTE | 2019-11-22 07:30 | NUR ---
Patient eating breakfast in dining room with peers at this time. Respirations easy and regular. Vital signs stable. No overt distress. HARLEEN TRUONG and team on unit to see pt at this time.
[2019-11-22 08:00] VITALS: BP 130/72
--- NOTE | 2019-11-22 08:30 | NUR ---
Treatment Plan meeting was held via Telephone with Dr. Santos, MATT Galdamez, RN, AT, CLINICAL DOCUMENTATION IMPROVEMENT SPECIALIST-S and First Coat Sander. Plan for discharge once placement is secured. Multiple referrals have been faxed. Referral to [facility] is the only facility that is pending at this time. Working with Strategic Account Director and Pt. Guardian for placement.
--- NOTE | 2019-11-22 10:03 | NUR ---
Referral Refaxed to [facility] Attn: Rasheeda [phone].
--- NOTE | 2019-11-22 10:04 | NUR ---
Spoke with Kiran at the [facility] where they have a Secure Behavioral Unit. Faxed Referral for Review [phone] Attn: Kiran.
--- NOTE | 2019-11-22 10:05 | NUR ---
Call placed to [facility]. Currently admission Liason is in a Morning Meeting but will Review Referral. Faxed to [phone] Attn: Admissions.
--- NOTE | 2019-11-22 10:10 | NUR ---
Time spent this AM with this filing writer and Fely Guajardo, interstate planner, reviewing and researching other NFs that pt's guardian had requested be pursued for pt. Spoke with pt's guardian and informed her that pt had requested to speak to her. Also spoke to guardian about pt's discharge. Guardirocael Janette Corie stated that the chucking lathe operator [facility] was submitting a letter to [facility] about pt's current situation and asking for guidance from the court. Janette stated that she will fax a copy to this filing writer. Janette also stated that she and her wax room supervisor Fely Hernandez are scheduling a meeting with the [facility] to discuss residential options for pt.
--- NOTE | 2019-11-22 10:22 | NUR ---
Met with pt this AM. Pt stated that she wanted to speak to her guardian because her son had told pt something that she needs to discuss with the guardian. Pt also inquired about her discharge and stated that Chasidy Silvestre SPIRAL TUBE WINDER had told pt that pt could live in her own apartment. Informed pt that Chasidy was incorrect in stating this because pt's court appointed guardian is the person who will determine where pt discharges to and at this time, NFs are being pursued. Pt did begin to raise her voice to this commercial underwriter but easily calmed when this commercial underwriter instructed pt to do so. Empathized with pt about the difficulty in waiting for placement and confirmed to pt that this commercial underwriter would request that the guardian call pt. Pt voiced understanding and appreciation.
--- NOTE | 2019-11-22 10:42 | NUR ---
Kiran from the [facility] Calls with Decline of Referral. Secure Unit does not accept Medicaid.
--- NOTE | 2019-11-22 11:36 | NUR ---
AM GROUP PT ATTENDED MORNING GROUP THERAPY AND PARTICIPATED FULLY. PT IS FRUSTRATED WIHT HER SITUATION AND WAS ALLOWED TO VENT ABOUT IT. PT EXHIBITED NO AGITATION OR AGGRESSION AND WAS ABLE TO COMMUNICATE WITHOUT RAISING HER VOICE.
--- NOTE | 2019-11-22 15:37 | NUR ---
PM GROUP/DREAM CATCHERS PT ATTENDED AND PARTICIPATED IN AFTERNOON GROUP THERAPY. PT WAS ON TASK AND TALKATIVE, MOSTLY ABOUT HER FRUSTRATION WITH HER SITUATION. PT WAS ALLOWED TO VENT. PT EXHIBITED NO AGITATION OR AGGRESSION WHILE IN GROUP.
--- NOTE | 2019-11-22 16:05 | NUR ---
Shift chart check completed.
--- NOTE | 2019-11-22 16:08 | NUR ---
No adverse behaviors this shift. Pt is alert and oriented x4. Memory appears to be intact. Resps easy and even on room air. Pt began to raise voice x1 this morning when discussing discharge plan but was easily redirected. Pt then appropriately voiced her frustrations regarding her delayed discharge. Emotional support provided. Mood appears otherwise stable, affect broad range. Speech is WNL and coherent, able to make needs known without difficulty. Pt denies SI/HI, intent or plan. Pt denies hallucinations, no response to internal stimuli noted. No paranoia or delusions noted. Interacts appropriately with staff and peers. Medication compliant without difficulty. No aggressive behaviors. No distress noted. Plan to continue current tx, continue to monitor mood and behaviors, provide appropriate reorientation, redirection and 1:1 as needed.
[2019-11-22 18:59] VITALS: BP 123/90
--- NOTE | 2019-11-22 23:52 | NUR ---
P-HALLUCINATIONS I-REDIRECTION WITH 1:1 THERAPEUTIC INTERVENTIONS AND. EDUCATE AND ENCOURAGE MEDICATION COMPLIANCE R-PATIENT WITH NO SUICIDAL OR HOMICIDAL IDEATIONS. PATIENT WITH NO DELUSIONS AT THIS TIME. PATIENT WITH AUDITORY AND VISUAL HALLUCINATIONS. PATIENT COMMUNICATING WITH UNSEEN OTHERS. PATIENT DENIES TALKING TO UNSEEN OTHERS. PATIENT ISOLATING IN ROOM THIS SHIFT WITH LIMITED INTERACTION WITH PEERS THIS SHIFT. P-CONTINUE TO ENCOURAGE MEDICATION COMPLIANCE, ENCOURAGE GROUP THERAPY WHILE AWAKE
--- NOTE | 2019-11-23 06:42 | NUR ---
PATIENT SLEPT 6-7 HOURS OF UNINTERRUPTED SLEEP THROUGHOUT SHIFT. Q 15 MINUTE CHECKS MAINTAINED. 24 HR chart check completed.
[2019-11-23 07:42] VITALS: BP 128/84
--- NOTE | 2019-11-23 08:00 | NUR ---
Patient in dining room with peers. Respirations easy and regular. Vital signs stable. No overt distress. SHARMILA GONZALES
--- NOTE | 2019-11-23 08:30 | NUR ---
Treatment Plan meeting was held via Telephone with Dr. Santos RN, AT, POWER TRUCK DRIVER-S and Machine Stacker. Plan for discharge is uncertain at this time. Placement for patient requires 24 Hour Supervision, Locked Secure Unit. Referrals have been faxed to Numerous facilities. No facility has accepted. Monisha Mcmullen Director of Case Management is aware of Difficult Placement.
--- NOTE | 2019-11-23 09:25 | NUR ---
Spoke with pt's guardian Janette Fontenot who shared about the meeting with Marlin Dillard, President/[employer] & Live Experiences of [facility]. Marlin stated that pt is not appropriate for any form of residential housing due to numerous failures of community living in the past. Informed Janette that this commercial loan underwriter planned on speaking with the Director of [facility] today for further direction.
--- NOTE | 2019-11-23 09:40 | NUR ---
DR. HOUSTON AND TEAM ON UNIT TO ASSESS PT AT THIS TIME.
--- NOTE | 2019-11-23 10:23 | NUR ---
Patient in dining room with peers. Respirations easy and regular. Vital signs stable. No overt distress. SHARMILA GONZALES
--- NOTE | 2019-11-23 11:31 | NUR ---
AM GROUP/KLARISSA ROMERO PT ATTENDED MORNING GROUP THERAPY AND PARTICIPATED FULLY. PT IS LESS DELUSIONAL AND ON TASK. PT EXHIBITED NO AGITATION OR AGGRESSION WHILE IN GROUP.
--- NOTE | 2019-11-23 13:03 | NUR ---
Spoke with Admissions Department at [facility] concerning Referral. Unable to accept admissions from Outside Counties.
--- NOTE | 2019-11-23 13:06 | NUR ---
Spoke with Konrad at [facility]. Facility does not have a Locked Unit.
--- NOTE | 2019-11-23 13:06 | NUR ---
Left Message for Mirlande in Admissions at [facility] concerning referral. Spoke with Janette at [facility], [facility] Declined. Spoke with [facility] they are Currently Full with a waiting list.
--- NOTE | 2019-11-23 13:46 | NUR ---
Call Placed to [facility], No Behavioral Unit. Call to [facility], No Behavioral Unit. Call to [facility], No female beds. Call to [facility] and spoke with Humera Gutierrez. Facility does have openings and Female Behavioral Unit. Faxed Referral for Review [phone].
--- NOTE | 2019-11-23 14:25 | NUR ---
PT IN GROUP AT THIS TIME. OFFERS NO COMPLAINTS. SHARMILA GONZALES RN
--- NOTE | 2019-11-23 14:39 | NUR ---
Provided update of discharge status of pt this AM to Fracisco Pope, Director of [facility]. Provided update of discharge status of pt this afternoon to Martin Mcmullen, Director of Case Management. Discussed holding a conference call with guardian and [facility] to discuss discharge options. Martin will request a meeting within [facility]. This marketing underwriter will notify pt's guardian of the same. Phoned guardian Janettekevin Fontenot and informed her of meeting scheduled for tomorrow at 11:00. Janette stated that she is placing a call to her treating and pumping supervisor. Await return call.
--- NOTE | 2019-11-23 14:50 | NUR ---
Spoke with Humera Gutierrez at [facility]. They would like to Set up Onsite Assessment [employer] at 10:30 a.m. using IPAD. Spoke with [facility] Nurse and Advised.
--- NOTE | 2019-11-23 15:15 | NUR ---
Janette Fontenot confirmed that she and her parachute manufacturing supervisor will be available for conference call tomorrow at 11:00. Also informed Janette that [facility] is showing interest in pt referral.
--- NOTE | 2019-11-23 15:27 | NUR ---
PM GROUP/ART AND MUSIC PT ATTENDED AFTERNOON GROUP THERAPY AND PARTICIPATED IN ALL ACTIVITIES. PT WAS TALKATIVE AND HAD CONVERSATION WITH A PEER MOST OF THE GROUP. PT EXHIBITED NO AGITATION OR AGGRESSION WHILE IN GROUP.
--- NOTE | 2019-11-23 15:40 | NUR ---
PT HAS BEEN EUPHORIC THIS SHIFT, SPEECH IS LOUD, AFFECT IS ANIMATED. PT IS PLEASANT AND COOPERATIVE WITH ASSESSMENT. PT IS ALERT AND ORIENTED X 3. NO ADVERSE MOODS AT THIS TIME. PT IS MEDICATION COMPLIANT WITHOUT DIFFICULTY. CONTINENT OF BOWEL AND BLADDER. PT TOOK SHOWER THIS AFTERNOON, HYGIENE AND APPEARANCE APPROPRIATE AT THIS TIME. PT PARTICIPATED IN BOTH GROUP SESSIONS. WILL CONTINUE TO MONITOR Q 15 MIN PER POLICY FOR SAFETY.
[2019-11-23 20:00] VITALS: BP 139/83
--- NOTE | 2019-11-24 01:46 | NUR ---
PATIENT ALERT AND ORIENTED. PATIENT WITH NO RESPIRATORY DISTRESS. PATIENT INTRUSIVE IN DINING AREA WITH PEERS. REDIRECTION WITH 1:1 THERAPEUTIC INTERVENTIONS PROVIDED AND EFFECTIVE. PATIENT WITH NO SUICIDAL OR HOMICIDAL IDEATIONS. PATIENT WITH NO HALLUCINATIONS OR DELUSIONS AT THIS TIME. PATIENT WITH AUDITORY AND VISUAL HALLUCINATIONS. PATIENT DENIES TALKING TO UNSEEN OTHERS. CONTINUED TO ENCOURAGE MEDICATION COMPLIANCE. GROUP THERAPY IS ENCOURAGED WHILE AWAKE
--- NOTE | 2019-11-24 03:46 | NUR ---
This nurse went to evluate patient for skin impairments with Nurse caring for patient Nathan RN patient refusing skin assessment at this time.
--- NOTE | 2019-11-24 05:41 | NUR ---
PATIENT SLEPT 1 HOUR OF SLEEP THROUGHOUT SHIFT. Q 15 MINUTE CHECKS MAINTAINED. 24 HR chart check completed.
[2019-11-24 07:52] VITALS: BP 142/83
--- NOTE | 2019-11-24 08:30 | NUR ---
Treatment Plan meeting was held via telephone with Dr. Santos, MATT Galdamez, RN, AT, CHANGE ROOM ATTENDANT-S and Factory Machine Computer Operator. Plan for discharge is unclear at this time. Placement in Safe Environment has not been secured. Continue to work with Guardian. Meeting with upper Management today to discuss discharge options and planning. Last Referral to [facility] in [facility] has declined after further review they believe they are unable to meet patient needs. Spoke with Humera Gutierrez this a.m. at facility.
--- NOTE | 2019-11-24 11:10 | NUR ---
DR HOUSTON ON THE UNIT TO ASSESS PT.
--- NOTE | 2019-11-24 11:33 | NUR ---
AM GROUP PT ATTENDED MORNING GROUP THERAPY AND PARTICIPATED IN ALL ACITIVITIES. PT WAS NOTED TO BE SPEAKING TO AN UNSEEN OTHER WITH SOME AGITATION. PT WAS ALSO LAUGHTING INAPPROPRIATELY AT TIMES. PT MADE AND ODD COMMENT SAYING, "GOD FUCKS WITH ME ALL NIGHT. ALL NIGHT LONG" PT EXHIBITED NO AGGRESSIVE BEHAVIORS WHILE IN GROUP.
--- NOTE | 2019-11-24 13:29 | NUR ---
Phone conference held this AM with pt's guardian Janette Fontenot, Janette's supervisor decorating Fely Hernandez, Dr Guy, Director of [facility] Fracisco Pope, Director of Case Management Martin Mcmullen, [facility] business continuity planner Fely Guajardo, and this television script writer. Briefly reviewed hx of pt's admission, failed discharge due to [facility] refusal of pt return, and current discharge difficulties. There have been 88 nursing homes contacted with denials of pt to this date. Suggestions were voiced and discussed. It was determined that Fracisco would speak to Dr Santos about changing Aristada to less expensive drug, as this was shared by some of the nursing homes as the reason for pt denial.
--- NOTE | 2019-11-24 15:01 | NUR ---
Call placed to [facility]. They do have a Behavioral Unit but currently home no Open Beds [phone].
--- NOTE | 2019-11-24 15:30 | NUR ---
PM GROUP PT ATTENDED AFTERNOON GROUP THERAPY AND PARTICIPATED FULLY. PT EXHIBITED BIZARRE BEHAVIORS SUCH SPEAKING AND "SCOULDING" UNSEEN OTHERS, LAUGHING INAPPROPRIATELY, GETTING UP AND MOVING SEATS REPEATEDLY, MAKING OFF THE WALL COMMENTS OUT OF CONTEXT...PT BECAME AGITATED WHEN I SUGGESTED THAT SHE WAS TIRED AND NEEDED SLEEP.
--- NOTE | 2019-11-24 15:55 | NUR ---
PT TALKING TO UNSEEN OTHERS. DR DAY UPDATED AND ORDERS TO GIVE HALDOL 5MG PO OR IM. PT INITIALLY REFUSED PO HOWEVER ENDED UP TAKING MEDICATION BY MOUTH. PT STATED SHE WAS TALKING TO THE SUN. A&O X4 WITH PERIODS OF CONFUSION NOTED. NO BEHAVIORAL ISSUES NOTED. CONTINUE TO REORIENT PT WHEN NEEDED. CONTINUE TO MONITOR BEHAVIORS WHEN NEEDED. SEE [facility] FLOWSHEET FOR SPECIFIC MONITORING,
--- NOTE | 2019-11-24 17:00 | NUR ---
PRN EFFECTIVE. PT SITTING CALMY IN THE DINNING ROOM TALKING TO OTHER PATIENTS.
[2019-11-24 20:00] VITALS: BP 146/80
--- NOTE | 2019-11-24 20:41 | NUR ---
PATIENT COMPLAINING OF AN ACHING HEADACHE, RATING 6 OUT OF 10. PATIENT REQUESTING AND RECEIVED AT THIS TIME PO TYLENOL PER PRN ORDER. WILL CONTINUE TO MONITOR FOR EFFECTIVENESS.
--- NOTE | 2019-11-24 20:41 | NUR ---
PRN PO HALDOL 5MG GIVEN PER DR. DAY ORDER IF PATIENT IS NOTED TO BE HALLUCINATING. PATIENT NOTED TO BE LOOKING ACROSS THE TABLE TALKING TO UNSEEN OTHER, PATIENT REACHING OUT TO UNSEEN OTHER. WHEN ASKING PATIENT WHAT SHE IS DOING PATIENT STATED THAT SHE IS TALKING TO MR. PRESIDENT NIGHAT CRAWFORD AND HE IS HELPING HER PRAY RIGHT NOW. PATIENT STATING TO UNSEEN OTHER "I WAS AT MY HOUSE ABOUT THREE DAYS AGO AND I THREW THIS GLASS DOWN THE STREET" PATIENT INAPPROPRIATELY LAUGHING. PATIENT STARTED YELLING "YOU DONT STEP ON THAT, THAT WILL HURT". REALITY PRESENTATION INEFFECTIVE. WILL CONTINUE TO MONITOR PATIENT FOR EFFECTIVENESS.
--- NOTE | 2019-11-24 21:41 | NUR ---
PATIENT STATES PRN TYLENOL WAS EFFECTIVE FOR HEADACHE. NO FURTHER COMPLAINTS AT THIS TIME.
--- NOTE | 2019-11-24 21:41 | NUR ---
PRN PO HALDOL INEFFECTIVE. PATIENT CONTINUES TO TALK TO UNSEEN OTHERS AND LAUGHING INAPPROPRIATELY. WILL CONTINUE TO MONITOR PATIENT AND SEE FURTHER NOTES FOR PATIENTS BEHAVIOR.
--- NOTE | 2019-11-24 22:00 | NUR ---
P- LAABILE; AUDITORY AND VISUAL HALLUCINATIONS; INAPPROPRIATE LAUGHTER; RACING THOUGHT PROCESS; INTRUSSIVE; PACING; DELUSIONAL I- ASSESS MOOD, ORIENTATION, SI/HI, HALLUCINATIONS, DELUSIONS, OR PAIN. ASSESS HALLUCINATIONS FOR COMMAND HALLUCINATIONS. PROVIDE MEDICATIONS AND SEE OTHER NOTES FOR FURTHER DETAIL. PRESENT REALITY. REDIRECT BEHAVIOR. PROVIDE LOW STIMULI ENVIRONMENT. 1:1 THERAPEUTIC INTERACITON WITH EMOTIONAL SUPPORT AND VENTILATION OF FEELINGS PROVIDED. R- ALERT AND ORIENTED X3. MOOD LABILE WITH EUTHYMIA AT TIMES. INAPPROPRIATE LAUGHTER. RACING THOUGHTS AND JUMPING TOPICS AT TIMES WITH CONVERSATION. PATIENT MAKING INAPPROPRIATE REMARKS ABOUT STAFF AND NOTED TO BE FLIPPING OFF ANOTHER PATIENT; REDIRECTION ON BEHAVIOR EFFECTIVE. DENIES COMMAND HALLUCINATIONS. DENIES SI/HI. PATIENT INTERACTING WITH INTERNAL STIMULI WITH DELUSIONAL THOUGHT PROCESS NOTED. PATIENT C/O HEADACHE, SEE EMAR AND OTHER NOTES FOR FURTHER DETAIL. PATIENT TALKING TO UNSEEN OTHERS, GESTURING, AND REACHING OUT TO UNSEEN OTHERS. WHEN ASKED WHO SHE WAS TALKING TO PATIENT STATED PRESEIDENT NIGHAT CRAWFORD. PATIENT STATING TO UNSEEN OTHER THAT SHE WAS AT HOME A COUPLE DAYS AGO THROWING GLASS OUTSIDE. PATIENT WOULD START INAPPROPRIATELY LAUGHING AND STATING, DONT STEP ON THAT RIGHT, RIGHT, RIGHT. RAMBLING SPEECH AND AT TIMES INCOHERENT. PATIENT SAID SHE WAS TALKING TO HER GRANDPA, LAUGHING, AND STATING "OH GRANDPA, YOU ARE JUST TO FUNNY". PATIENT GOT UP TO LEAVE THE DINING ROOM, POINTED DOWN IN THE MIDDLE OF THE FLOOR AT NOTHING, AND STATED "DON'T STEP ON THE COCKROACH!", THEN WALKED AWAY. PATIENT NOTED TO GET IRRITABLE AND AGITATED AT TIMES WHEN HALLUCINATING. WHEN APPROACHED PATIENT WOULD START LAUGHING AND STATE THAT SHE DIDNT KNOW WHAT STAFF WAS TALKING ABOUT. PATIENT PACING FROM PATIENT ROOM TO THE QUIET ROOM. INAPPROPRIATE LAUGHTER IN ROOM. NOTED TALKING TO UNSEEN OTHERS. PATIENT IN THE QUIET ROOM, PACING AND SITTING. NOTED TO BE TALKING AND POINTING AT UNSEEN OTHER. HOLDING OUT ARMS, SWAYING BACK AND FORTH, AND POINTING AROUND ROOM. REALITY PRESENTATION INEFFECTIVE. PATIENT UTILIZING LOW STIMULI ENVIRONMENTS. MEDICATIONS INEFFECTIVE. PATIENT WAS NOTED DURING SNACK TIME TO BE TALKING TO OTHER PATIENTS AND TRYING TO CONVINCE THEM THAT THEY WERE HERE WITH HER AT THE [facility]; REDIRECTION EFFECTIVE. P- ASSESS MOOD, ORIENTATION, SI/HI, HALLUCINATIONS, DELUSIONS OR PAIN. MONITOR FOR COMMAND HALLUCINATIONS. PRESENT REALITY FREQUENTLY. ENCOURAGE TO UTILIZE LOW STIMULI ENVIRONMENT. MONITOR PATIENT FREQUENTLY. PROVIDE MEDS ON TIME WITH EDUCATION ON EACH. REDIRECT WITH INAPPROPRIATE BEHAVIORS. 1:1 INTERACTION. Q15 MINUTE CHECKS MAINTAINED FOR SAFETY.
--- NOTE | 2019-11-25 00:48 | NUR ---
24 HR chart check completed.
--- NOTE | 2019-11-25 06:28 | NUR ---
PATIENT SLEPT APPROXIMATELY 2 HOURS OF INTERRUPTED SLEEP. NO S/S OF DISTRESS NOTED, RESPS EVEN AND UNLABORED ON ROOM AIR. Q15 MINUTE CHECKS MAINTAINED FOR SAFETY.
--- NOTE | 2019-11-25 06:32 | NUR ---
PATIENT APPROACHED STAFF AND STATED "I AM SORRY ABOUT LAST NIGHT. EVERYONE THINKS THAT I WAS HAVING HALLUCINATIONS WHEN REALLY I WAS NOT". WHEN STAFF ASKED WHAT SHE WOULD DESCRIBE WHAT SHE WAS DOING, PATIENT RESPONDED WITH "PLAYING IN MY OWN [id number]".
[2019-11-25 07:41] VITALS: BP 111/81
--- NOTE | 2019-11-25 07:45 | NUR ---
Patient eating breakfast in dining room with peers. Respirations easy and regular. Vital signs stable. No overt distress. HARLEEN TRUONG
--- NOTE | 2019-11-25 10:25 | NUR ---
PT STATED TO THE COUNTER WAITRESS/WAITER "WHAT DID THE BIG BAD JENKINS SAY TO DELILAH FAMILIA VINICIOANAM ROGERS?" PT THEN CONTINUED STATING "I WANT TO FUCK YOU" PT THEN STATED "THE LITTLE RED RIDING ROGERS SAID, NO YOU DONT YOU HAVE TO EAT ME FIRST LIKE THE BOOK SAYS THEN BLOW MY HOUSE DOWN". PT WAS EASILY REDIRECTED ONTO MORE APPROPRIATE SUBJECTS.
--- NOTE | 2019-11-25 17:43 | NUR ---
Pt noted with frequent outbursts of inappropriate laughter all throughout the shift. After dinner pt began laughing hysterically while looking out the window. This RN questioned pt what she was laughing at. Pt thought a moment and then pointed out the window and answered "Gustavo Deluna, he's flying into the window wearing a black leather jumpsuit. He's trying to save me". This RN challenged reality with pt, pt then stated "Yeah, I'm just making stuff up". Pt continues with the same outbursts of inappropriate laughter approximately every 5-10 minutes.
[2019-11-25 19:30] VITALS: BP 139/86
--- NOTE | 2019-11-25 21:04 | NUR ---
Patient alert and oriented to person,place,time and situation. Mood is calm but pt laughing frequently at nothing. Patient says "people think I am hallucinating. I am not hearing any voices and I am not having any hallucinations. This is a game I make up on my own. I have been here so long that I get bored and I have to do something. If the doctor wants to stop these games then he will have to order a shot of geodon." No SI/HI noted. Denies any hallucinations at this time. No overt s/s of responding to internal stimuli noted at this time. No memory deficits noted. Patient did not have any HS medications due at this time so unable to assess medication compliance. Provided 1:1 for emotional support. Redirected when needed. Plan to continue to encourage medication compliance. Also continue to offer emotional support and redirect when needed/appropriate. Will continue to monitor moods/behaviors. Q 15 minute safety checks continued and maintained. Patient refused skin assessment to be done at this time. See [facility] flowsheet for further documentation.
--- NOTE | 2019-11-25 21:37 | NUR ---
Medicated with Klonopin po prn for anxiety at request of patient. Will continue to monitor moods/behaviors.
--- NOTE | 2019-11-26 06:04 | NUR ---
Patient slept approx. 7.5 hours throughout shift uninterrupted. Q 15 minute safety checks continued and maintained.
[2019-11-26 07:19] VITALS: BP 124/85
--- NOTE | 2019-11-26 07:32 | NUR ---
Patient resting quietly with no c/o discomfort. Respirations easy and regular. Vital signs stable. No overt distress. HARLEEN TRUONG
--- NOTE | 2019-11-26 10:45 | NUR ---
and team on unit to see pt at this time.
--- NOTE | 2019-11-26 18:35 | NUR ---
Patient resting quietly with no c/o discomfort. Respirations easy and regular. Vital signs stable. No overt distress. GIVENS,GARDENIA
[2019-11-26 19:47] VITALS: BP 144/79
--- NOTE | 2019-11-26 23:21 | NUR ---
Patient alert and oriented to person,place,time and situation. Mood is calm and cooperative. No SI/HI noted. Denies any hallucinations at this time. No overt s/s of responding to internal stimuli noted at this time. No memory deficits noted. Patient did not have any HS medications due at this time so unable to assess medication compliance. Provided 1:1 for emotional support. Redirected when needed. Plan to continue to encourage medication compliance. Also continue to offer emotional support and redirect when needed/appropriate. Will continue to monitor moods/behaviors. Q 15 minute safety checks continued and maintained. Patient refused skin assessment to be done at this time. See [facility] flowsheet for further documentation.
--- NOTE | 2019-11-27 00:07 | NUR ---
24 HR chart check completed.
--- NOTE | 2019-11-27 05:09 | NUR ---
Patient slept approx. 1.5 hours with multiple awakenings throughout shift. Q 15 minute safety checks continued and maintained.
[2019-11-27 07:11] VITALS: BP 142/80
--- NOTE | 2019-11-27 08:30 | NUR ---
Treatment Plan meeting was held via Telephone with Dr. Santos, AMTT Galdamez, RN, AT [facility]. Plan for discharge once bed is secured. Will Continue to work with Legal Guardian for safe appropriate Placement. Pt. requires 24 hour Supervision and Secure Unit. Dr. Santos is aware that High Cost of Medication and Straight Medicaid have been concerns voiced by several referrals that have been made.
--- NOTE | 2019-11-27 08:59 | NUR ---
Spoke with Ese Lee at [facility]. Advised that Dr. Santos has requested further review of referral and possible reconsideration. She states that "She will see what she can do" Advised that medication that was going to be very high cost has been changed to lesser cost med.
--- NOTE | 2019-11-27 10:20 | NUR ---
Additional Clinicals Faxed to [facility] for reconsideration of referral Attn: Admissions [phone]
--- NOTE | 2019-11-27 10:35 | NUR ---
DR. HOUSTON ON UNIT TO ASSESS PATIENT.
--- NOTE | 2019-11-27 10:43 | NUR ---
PT FIXATED ON MEDICATION, CONTINUES TO STATE THAT SHE WANTS DEPAKOTE. PT EDUCATED ON TREATMENT PLAN AND CURRENT CHANGE IN MEDICATION TO HALDOL DECANOATE. PT CONTINUES TO BE UPSET THAT SHE HAS A GUARDIAN, PT ALSO DISCUSSES HER UNHAPPINESS IN THE CHANGE TO HALDOL VERSUS DEPAKOTE. PT IS RECEPTIVE TO TRYING NEW MEDICATION TOMORROW. WILL CONTINUE TO ENCOURAGE MEDICATION COMPLIANCE AND PROVIDE EDUCATION. WILL CONTINUE TO PROVIDE EMOTIONAL SUPPORT. Q15 MIN MONITORING PER POLICY.
--- NOTE | 2019-11-27 10:59 | NUR ---
Received call from Brenda [employer] Corporate Liason to [facility]. Provided two facilities in their System and Contact information. Spoke with Gianni the Station Baggage Agent at [facility] in [facility] They have had admissions on hold at this time due to the Virus but is willing to Look at Referral again. Faxed Referral to [facility] Attn: Gianni [phone].
--- NOTE | 2019-11-27 11:04 | NUR ---
Spoke with Kristi in Admissions at [facility]. No Open beds at this time. Behavioral Unit is full.
--- NOTE | 2019-11-27 11:38 | NUR ---
AM GROUP PT ATTENDED MORNING GROUP THERAPY AND PARTICIPATED VERY LITTLE. PT TALKED NONSTOP TO A FEMALE PEER OR TO MYSELF, OFTEN SWEARING AND RECOUNTING EVENTS THAT HAPPENED YEARS AGO. PT WAS AGITATED AND HURRIED IN HER SPEECH. PT EXHIBITED NO AGGRESSION WHILE IN GROUP.
--- NOTE | 2019-11-27 12:08 | NUR ---
Spoke with Galilea in Admissions at [facility]. Advised that Dr. Santos would like Referral for Further Review For Placement. Faxed Clinicals to update Referral [phone] Attn: Galilea.
--- NOTE | 2019-11-27 15:20 | NUR ---
Shift chart check completed.
--- NOTE | 2019-11-27 15:24 | NUR ---
Level of Care submitted to [facility] Attn: Pre Admission [phone]. Pt. is accepted at [facility] Spoke with Selena Lee at Facility pending level of care outcome.
--- NOTE | 2019-11-27 15:25 | NUR ---
Left Message for Pt. Legal Guardian to notify of acceptance to [facility] [phone].
--- NOTE | 2019-11-27 15:34 | NUR ---
PM GROUP/MANICURES AND MUSIC PT ATTENDED AFTERNOON GROUP THERAPY AND PARTICIPATED LIMITEDLY. PT WAS AGITATED, SPEAKING TO UNSEEN OTHERS, RUMINATING, AND USING FOUL LANGUAGE. PT IS DEMANDING AND RUDE TO PEERS. PT IS NOT REDIRECTABLE AT THIS TIME. PT EXHIBITED NO AGGRESSIVE BEHAVIORS WHILE IN GROUP.
--- NOTE | 2019-11-27 15:52 | NUR ---
Spoke with Pt. Legal Guardian Janette via telephone. Notified of acceptance to [facility]. Waiting on Level of Care to return.
[2019-11-27 19:28] VITALS: BP 133/91
--- NOTE | 2019-11-27 21:29 | NUR ---
Medicated with Klonopin po prn at request of patient for anxiety. Will monitor moods/behaviors.
--- NOTE | 2019-11-27 21:38 | NUR ---
Patient alert and oriented to person,place,time and situation. Mood is calm and cooperative. No SI/HI noted. Denies any hallucinations at this time. No overt s/s of responding to internal stimuli noted at this time. No memory deficits noted. Patient did not have any HS medications due at this time so unable to assess medication compliance. Provided 1:1 for emotional support. Redirected when needed. Plan to continue to encourage medication compliance. Also continue to offer emotional support and redirect when needed/appropriate. Will continue to monitor moods/behaviors. Q 15 minute safety checks continued and maintained. Patient refused skin assessment to be done at this time. See [facility] flowsheet for further documentation.
--- NOTE | 2019-11-28 06:10 | NUR ---
Patient slept approx.2 hours throughout shift with multiple awakenings. Q 15 minute safety checks continued and maintained.
[2019-11-28 07:38] VITALS: BP 121/85
--- NOTE | 2019-11-28 08:50 | NUR ---
HALDOL DECONATE 100MG GIVEN IM TO RIGHT BUTTOCK, TOLERATED WELL.
--- NOTE | 2019-11-28 09:15 | NUR ---
Received Call From Galilea at [facility]. Had called to ask for Second Review of Referral and Pt. is still Declined.
[2019-11-28] MEDS ORDERED: HALOPERIDO100 MG/1 M IM (09:46)
--- NOTE | 2019-11-28 09:48 | NUR ---
NOTIFIED OF DISCHARGE FOR TODAY AT 12:30
[2019-11-28] MEDS ORDERED: CLONAZEPAM1 MG PO (09:49)
--- NOTE | 2019-11-28 09:59 | NUR ---
PT REFUSED SHOWER, WOUND ASSESSMENTS AND DISCHARGE PHOTOS THIS DATE. WITNESSED BY 2ND RN KAYLEE.
--- NOTE | 2019-11-28 11:38 | NUR ---
AM GROUP/MUSIC AND ERASMO PT ATTENDED MORNING GROUP AND PARTICIPATED BY LISTENING TO MUSIC AND BEADING A BRACELET. PT WAS LESS TALKATIVE AND DELUSIONAL YESTERDAY. PT EXHIBITED NO AGITATION OR AGGRESSION NOR SPOKE TO UNSEEN OTHERS.
--- NOTE | 2019-11-28 11:38 | NUR ---
attempted to call [facility] to give nurse to nurse report, recieved answering machine message at nurse's station. message left requesting call back for report.
--- NOTE | 2019-11-28 11:58 | NUR ---
second attempt to reach nurse at [facility] for nurse to nurse report, no answer. will reattempt.
--- NOTE | 2019-11-28 12:05 | NUR ---
Patient to discharge today. Spoke with pt's guardian Janette Corie and informed her of this. It was decided that this aligner typewriter, Janette, and RN would be present when pt was informed of her discharge. Pt handled the news of discharge well. Pt questioned Janette about pt's belongings at [facility]. Answers were provided.
--- NOTE | 2019-11-28 12:21 | NUR ---
Spoke to Ave in admissions re: giving nurse to nurse report. Nurse is passing medications, provided unit number, she will call for report.
--- NOTE | 2019-11-28 12:31 | NUR ---
Nurse to nurse report given to Martin at [facility]. Med list faxed per request.
--- NOTE | 2019-11-28 13:40 | NUR ---
Patient discharging today to [facility] for LTC. Follow-up will be with Dr Santos, visiting psychiatrist. While at [facility], pt's behaviors improved. Pt continued with some delusional content. Pt did participate in programming.
--- NOTE | 2019-11-28 13:45 | NUR ---
Pt discharged at this time to [facility] via [facility] stretcher with 2 motor driver present. gantry crane operator present for discharge. All personal belongings were sent with the pt. Discharge packet provided for facility and guardian.
== END 2019-11-28 13:45 | DRG 750 ==
LOC: 3N 23:16
PROVIDERS: ADMIT Psychiatry & Neurology Psychiatry
DX: F25.0 Schizoaffective disorder, bipolar type (principal); E44.0 Moderate protein-calorie malnutrition; E55.9 Vitamin D deficiency, unspecified; E03.9 Hypothyroidism, unspecified; F41.9 Anxiety disorder, unspecified; E78.5 Hyperlipidemia, unspecified; F17.210 Nicotine dependence, cigarettes, uncomplicated; Z91.14 Patient's other noncompliance with medication regimen; Z98.891 History of uterine scar from previous surgery; Z82.49 Family history of ischemic heart disease and other diseases of the circulatory system; Z84.89 Family history of other specified conditions; Z88.8 Allergy status to other drugs, medicaments and biological substances; Z79.899 Other long term (current) drug therapy; Z68.26 Body mass index [BMI] 26.0-26.9, adult